=== PATIENT | female | born 1990 | race Caucasian/White ===

== ENCOUNTER 2016-05-22 19:30 | Emergency (ER) | payer MEDICAID ==
--- NOTE | 2016-05-22 19:57 | ER Document Report ---
ED Medical Screen (RME) - General Stated Complaint: RIGHT HAND PAIN Mode of Arrival: Ambulatory Information source: Patient Notes: Patient was pulling on a shirt that her was also pulling on. Patient states that her commissure and twisted. Patient complains of right hand pain involving right fourth and fifth fingers. Patient is right-hand dominant. hx: Thyroid cancer, liver failure, hypertension I have greeted and performed a rapid initial assessment of this patient. A comprehensive ED assessment and evaluation of the patient, analysis of test results and completion of the medical decision making process will be conducted by additional ED providers. TRAVEL OUTSIDE OF THE [place] IN LAST 30 DAYS: No - Related Data Allergies/Adverse Reactions: gabapentin Allergy (Verified 05/22/16 19:54) tramadol Allergy (Verified 05/22/16 19:54) Past Medical History GI Medical History: Reports: Hx Hepatitis - Hep C, Hx Liver Failure Psychiatric Medical History: Reports: Hx Depression - as a teenager Infectious Medical History: Reports: Hx Hepatitis - Hep C Past Surgical History: Reports: Hx Section - Immunizations Immunizations up to date: Yes Hx Diphtheria, Pertussis, Tetanus Vaccination: Yes Physical Exam - Extremities General upper extremity: Tender - Right hand tenderness
[2016-05-22] MEDS ORDERED: OXYCODONE HCL IR 5 MG TABLET PO ONE (22:39)
--- NOTE | 2016-05-22 22:48 | ER Document Report ---
ED Hand/Wrist Injury - General Chief Complaint: Wrist Injury Stated Complaint: RIGHT HAND PAIN Time seen by provider: 22:41 Mode of Arrival: Ambulatory Notes: 26-year-old female presents to ED for pain in her right fourth finger. She states her and her were both pulling on the same shirt and her finger got twisted. Her right fourth finger is swollen and very ecchymotic. TRAVEL OUTSIDE OF THE [place] IN LAST 30 DAYS: No - HPI Injury to: Ring finger Onset: Just prior to arrival Where: Home Timing: Still present Quality of pain: Sharp, Throbbing Severity: Moderate Pain Level: 4 Context: Other - Finger was twisted all her and her were both pulling on the same shirt - Related Data Allergies/Adverse Reactions: gabapentin Allergy (Verified 05/22/16 19:54) tramadol Allergy (Verified 05/22/16 19:54) Past Medical History - General Information source: Patient - Social History Smoking Status: Never Smoker Cigarette use (# per day): No Chew tobacco use (# tins/day): No Smoking Education Provided: No Frequency of alcohol use: None Drug Abuse: None Occupation: none Lives with: Family Family History: Arthritis, CAD, CVA, DM, Hyperlipidemia, Hypertension, Malignancy, Thyroid Disfunction. denies: COPD Patient has suicidal ideation: No Patient has homicidal ideation: No - Past Medical History Cardiac Medical History: Reports: None Pulmonary Medical History: Reports: None EENT Medical History: Reports: None Neurological Medical History: Reports: None Endocrine Medical History: Reports: None Renal/ Medical History: Reports: None Malignancy Medical History: Reports: Other - Thyroid cancer GI Medical History: Reports: Hx Hepatitis - Hep C, Hx Liver Failure Musculoskeltal Medical History: Reports Hx Musculoskeletal Trauma - Right fourth finger Skin Medical History: Reports None Psychiatric Medical History: Reports: None, Hx Depression - as a teenager Traumatic Medical History: Reports: Hx Fractures - Right fourth finger today Infectious Medical History: Reports: Hx Hepatitis - Hep C Past Surgical History: Reports: Hx Section - Immunizations Immunizations up to date: Yes Hx Diphtheria, Pertussis, Tetanus Vaccination: Yes Review of Systems - Review of Systems Constitutional: No symptoms reported EENT: No symptoms reported Cardiovascular: No symptoms reported Respiratory: No symptoms reported Gastrointestinal: No symptoms reported Genitourinary: No symptoms reported Female Genitourinary: No symptoms reported Musculoskeletal: Other - Right fourth finger pain swelling bruising Skin: Change in color Hematologic/Lymphatic: No symptoms reported Neurological/Psychological: No symptoms reported Physical Exam - Vital signs Vitals: Temp Pulse Resp BP Pulse Ox 97.8 F 107 H 16 136/91 H 100 05/22/16 19:54 05/22/16 19:54 05/22/16 19:54 05/22/16 19:54 05/22/16 19:54 Interpretation: Normal - General General appearance: Appears well, Alert - HEENT Head: Normocephalic, Atraumatic Eyes: Normal Pupils: PERRL - Respiratory Respiratory status: No respiratory distress Chest status: Nontender Breath sounds: Normal Chest palpation: Normal - Cardiovascular Rhythm: Regular Heart sounds: Normal auscultation Murmur: No - Abdominal Inspection: Normal Distension: No distension Bowel sounds: Normal Tenderness: Nontender Organomegaly: No organomegaly - Back Back: Normal, Nontender - Extremities General upper extremity: Normal temperature General lower extremity: Normal inspection, Nontender, Normal color, Normal ROM , Normal temperature, Normal weight bearing. No: Zulay's sign Hand: Tender - Right fourth finger, Ecchymosis - Right fourth finger, No evidence of human bite, No evidence of FB, Swelling - Right fourth finger. No: Normal, Nontender, Abrasion, Deformity, Dislocation, Instability, Nail injury, Laceration, Tendon deficit, Other - Neurological Neuro grossly intact: Yes Cognition: Normal Orientation: AAOx4 Sanjay Coma Scale Eye Opening: Spontaneous [place] Coma Scale Verbal: Oriented Sanjay Coma Scale Motor: Obeys Commands [place] Coma Scale Total: 15 Speech: Normal Motor strength normal: LUE, RUE, LLE, RLE Sensory: Normal - Psychological Associated symptoms: Normal affect, Normal mood - Skin Skin Temperature: Warm Skin Moisture: Dry Skin Color: Normal Course - Re-evaluation Re-evalutation: 05/23/16 06:56 Discussed x-ray with patient. Patient treated with a splint to her right fourth finger and then treated with oxycodone due to her history of hepatitis C and had liver failure. Patient given a prescription for oxycodone and told to follow-up with orthopedics. - Vital Signs Vital signs: Temp Pulse Resp BP Pulse Ox 97.9 F 90 16 122/73 100 05/22/16 23:00 05/22/16 23:00 02/18/17 23:00 05/22/16 23:00 05/22/16 23:00 - Diagnostic Test Radiology reviewed: Image reviewed, Reports reviewed Procedures - Immobilization Right Finger 4th digit Immobilizer type: Finger splint (Static) Performed by: TAMMY Post-Proc Neuro Vasc Exam: Normal Alignment checked and good: Yes Discharge - Discharge Clinical Impression: fractured right fourth middle phalanx Condition: Stable Disposition: HOME, SELF-CARE Additional Instructions: Fractured Finger There is a fracture in your finger. The bone is straight and in good position to heal. The doctor has assessed the seriousness of the fracture and has explained your treatment plan. Usually the finger will be splinted until fracture healing is complete. This is usually about three or four weeks. At that time, the injured finger may be taped to the next finger to provide a moving splint for longer protection. The first few days after the injury, the finger should be kept elevated and cold (with ice packs). This decreases the swelling and pain. You should contact the doctor or return at once if pain or swelling become severe, or if the finger becomes numb. Some degree of bruising is normal with a finger fracture. SPLINT PRECAUTIONS: A splint has been placed. This will protect the area while healing begins. Your problem does NOT normally require a cast. It MUST, however, be held still! Keep the splint on ALL THE TIME until instructed to remove it by the doctor. As you begin to use the area, be careful. You shouldn't do anything which causes discomfort -- you may disturb the injury even with the splint in place. After the initial period of rest and elevation, if splint does not prevent pain when you move, come back. You may require placement of a different splint , or a cast. If there is unexpected severe pain, or numbness, discoloration, or swelling beyond the splint, you should return at once. If you feel that the splint has broken or become loose, come back. ICE & ELEVATION: Apply ice packs frequently against the painful area. Many different schedules are recommended, such as "20 minutes on, 20 minutes off" or "one hour ice, two hours rest." If you need to work, you may need to go longer between ice treatments. You should plan to have the area ice packed AT LEAST one- fourth of the time. The ice should be applied over the wrap, tape, or splint, or over a layer of cloth -- not directly against the skin. Some ice bags have a built-in cloth and can be put directly on the skin. Your injured part should be elevated as much as possible over the next 48 hours. Try to keep the injury above the level of the heart. Avoid use of the injured area. Elevation and rest will decrease the swelling. USE OF [id number] IBUPROFEN: Ibuprofen (Advil, Nuprin, Medipren, Motrin IB) is a medication for fever and pain control. In addition, it has anti- inflammatory effects which may be beneficial, especially in the treatment of injuries. It's best to take ibuprofen with food. Persons with ulcer disease or allergy to aspirin should notify their physician of this before taking ibuprofen. Ibuprofen can be given every four to six hours, for a total of four doses daily. Age Pain or fever dose Antiinflammatory dose 6-8 yr 200 mg (1 tab) 200 mg (1 tab) 9-11 yr 200 mg (1 tab) 200-400 mg (1-2 tab) 11-14 yr 200-400 mg (1-2 tab) 400 mg (2 tab) 15-adult 400 mg (2 tab) 600 mg (3 tab) ORAL NARCOTIC MEDICATION: You have been given a prescription for pain control. This medication is a narcotic. It's best taken with food, as nausea can result if taken on an empty stomach. Don't operate machinery or drive within six hours of taking this medication. Do not combine this medicine with alcohol, or with any medication which can cause sedation (such as cold tablets or sleeping pills) unless you get permission from the physician. Narcotics tend to cause constipation. If possible, drink plenty of fluids and eat a diet high in fiber and fruits. Please be aware that prescription narcotics also have the potential for abuse. People become addicted to these medications because of the general sense of wellbeing that they induce. This feeling along with a significant reduction in tension, anxiety, and aggression provides a stimulating seductive quality to these drugs. Once your pain is under control, we encourage you to discard your unused narcotics. FOLLOW-UP CARE: If you have been referred to a physician for follow-up care, call the physician s office for an appointment as you were instructed or within the next two days. If you experience worsening or a significant change in your symptoms, notify the physician immediately or return to the Emergency Department at any time for re-evaluation. Prescriptions: Oxycodone HCl 5 mg PO TIDP PRN #10 tablet PRN Reason: Forms: Elevated Blood Pressure Referrals: SONAM GARCIA MD [Primary Care Provider] - Follow up as needed JAQUELINE HARTMANN MD [ACTIVE STAFF] - Follow up as needed
[2016-05-22 23:51] VITALS: BP 122/73
== END 2016-05-22 23:05 | disposition home or self-care (01) ==
LOC: ER 19:30
DX: S62.624A Displaced fracture of middle phalanx of right ring finger, initial encounter for closed fracture (principal); M79.641 Pain in right hand; X50.9XXA Other and unspecified overexertion or strenuous movements or postures, initial encounter
CPT/HCPCS: 99283; 73130; J3490

== ENCOUNTER 2016-11-19 22:24 | Emergency (ER) | payer MEDICAID ==
[2016-11-20] MEDS ORDERED: ACETAMINOPHEN 325 MG TABLET PO ONE (00:28)
--- NOTE | 2016-11-20 00:28 | ER Document Report ---
ED General - General Chief Complaint: Rib Pain Stated Complaint: RIB PAIN Time Seen by Provider: 11/20/16 00:19 Notes: Patient is a pleasant 26-year-old female who presents with complaint of left- sided rib pain. Pain is pinpoint over the left lower anterior rib. She says she first noticed it when she was moving stuff and doing excessive cleaning. Since then every time she moves or pushes over there and hurts. Also hurts to take a deep breath. She is 7 months . This is her fourth . No complications with this . No leg pain or leg swelling. No fevers. No cough or congestion. She says she has a history of liver disease. She is unsure what, liver disease she has. She says because that her doctor told her she cannot take Tylenol. She therefore took Motrin 600 mg at home and also took 1 of her family members pain pills but she does not know the name of. She has no other complaints at this time. TRAVEL OUTSIDE OF THE [place] IN LAST 30 DAYS: No - Related Data Allergies/Adverse Reactions: gabapentin Allergy (Verified 11/19/16 22:53) tramadol Allergy (Verified 11/19/16 22:53) Past Medical History - Social History Smoking Status: Unknown if Ever Smoked Frequency of alcohol use: None Drug Abuse: None Family History: Arthritis, CAD, CVA, DM, Hyperlipidemia, Hypertension, Malignancy, Thyroid Disfunction. denies: COPD Renal/ Medical History: Denies: Hx Peritoneal Dialysis GI Medical History: Reports: Hx Hepatitis - Hep C, Hx Liver Failure Musculoskeltal Medical History: Reports Hx Musculoskeletal Trauma - Right fourth finger Psychiatric Medical History: Reports: Hx Depression - as a teenager Traumatic Medical History: Reports: Hx Fractures - Right fourth finger today Infectious Medical History: Reports: Hx Hepatitis - Hep C Past Surgical History: Reports: Hx Section - Immunizations Immunizations up to date: Yes Hx Diphtheria, Pertussis, Tetanus Vaccination: Yes Review of Systems - Review of Systems Notes: My Normal Review Basic REVIEW OF SYSTEMS: CONSTITUTIONAL : Denies fever, chills, or sweats. Denies recent illness. EENT: Denies eye, ear, throat, or mouth pain or symptoms. Denies nasal or sinus congestion. CARDIOVASCULAR: Left lower rib pain. RESPIRATORY: Denies cough, cold, or chest congestion. Denies shortness of breath, difficulty breathing, or wheezing. GASTROINTESTINAL: Denies abdominal pain. Denies nausea, vomiting, or diarrhea. Denies constipation. Last BM: MUSCULOSKELETAL: Denies neck or back pain or joint pain or swelling. SKIN: Denies rash or skin lesions. NEUROLOGICAL: Denies altered mental status or loss of consciousness. Denies headache. Denies weakness or paralysis or loss of use of either side. Denies problems with gait or speech. Denies sensory or motor loss. ALL OTHER SYSTEMS REVIEWED AND NEGATIVE. Physical Exam - Vital signs Vitals: Temp Pulse Resp BP Pulse Ox 98.0 F 99 22 H 129/85 H 98 11/19/16 22:53 11/19/16 22:53 11/19/16 22:53 11/19/16 22:53 11/19/16 22:53 - Notes Notes: General Appearance: Well nourished, alert, cooperative, no acute distress, mild to moderate obvious discomfort. Vitals: reviewed, See vital signs table. Head: no swelling or tenderness to the head Eyes: PERRL, EOMI, Conjuctiva clear Lungs: No wheezing, No rales, No rhonci, No accessory muscle use, good air exchange bilaterally. Heart: Normal rate, Regular rythm, No murmur, no rub Chest wall: Patient has obvious pinpoint pain to palpation over left lower rib at the costochondral junction. Pain is also easily reproducible with making the patient tried to sit up. No redness swelling or rash over the area Abdomen: Normal BS, soft, No rigidity, No abdominal tenderness, No guarding, no rebound, no abdominal masses, no organomegaly. Bedside ultrasound shows good movement. I cannot obtain a heart rate because of some artifact interference over the the heart itself. We will obtain Dopplers. Extremities: strength 5/5 in all extremities, good pulses in all extremities, no swelling or tenderness in the extremities, no edema. Skin: warm, dry, appropriate color, no rash Neuro: speech clear, oriented x 3, normal affect, responds appropriately to questions. Course - Re-evaluation Re-evalutation: 11/20/16 06:55 Patient's rib x-ray is negative for any type of pneumothorax or lung infiltrate. Her pain is easily reproducible palpation. This started after moving heavy objects. I suspect she probably has a subluxed restrained rib. I do not suspect PE. She is not had any leg pain or leg swelling. Her pain is very easily reproducible palpation and movement. This is much more consistent with musculoskeletal chest pain. I do not feel that a CT Susana Romero would have benefits outweigh the risks at this time especially considering that her physical exam is not consistent with PE. Patient encouraged to take Tylenol for pain. She is encouraged to return to ER if she feels like her pain is worsening, she has difficulty breathing, fevers, or feels unwell. Patient agrees with plan will be discharged home. Dictation of this chart was performed using voice recognition software; therefore, there may be some unintended grammatical errors. - Vital Signs Vital signs: Temp Pulse Resp BP Pulse Ox 98.2 F 90 20 121/78 100 11/20/16 02:54 11/20/16 02:54 11/20/16 02:54 11/20/16 02:54 11/20/16 02:54 Discharge - Discharge Clinical Impression: Rib pain on left side Qualifiers: Weeks of gestation: unspecified Qualified Code(s): Z34.90 - Encounter for supervision of normal , unspecified, unspecified trimester Condition: Good Disposition: HOME, SELF-CARE Additional Instructions: I suspect that he most likely have a subluxed rib that is causing her pain. Treatment is Tylenol being that you are . It is okay for you to take 350 mg of Tylenol every 4 hours. Please follow-up closely with your doubler operator for reevaluation. I will have the nurse give you something called incentive spirometer. Please use it to take a deep breath every 30 minutes. Taking a full deep breath helps to prevent from having pneumonia or any small collapsing in the lung that would otherwise occur because of you not wanting to take a deep breath due to pain. Please return to the ER immediately if you have difficulty breathing, worsening pain, fevers, or feel unwell. Forms: Return to Work
--- NOTE | 2016-11-20 02:14 | RADIOLOGY REPORT (SQ) ---
EXAM DESCRIPTION: CHEST SINGLE VIEW COMPLETED DATE/TIME: 11/20/2016 1:36 am REASON FOR STUDY: chest pain COMPARISON: 12/08/2015. EXAM PARAMETERS: NUMBER OF VIEWS: One view. TECHNIQUE: Single frontal radiographic view of the chest acquired. RADIATION DOSE: NA LIMITATIONS: None. FINDINGS: LUNGS AND PLEURA: No opacities, masses or pneumothorax. No pleural effusion. MEDIASTINUM AND HILAR STRUCTURES: No masses. Contour normal. HEART AND VASCULAR STRUCTURES: Heart normal in size. Normal vasculature. BONES: No acute findings. HARDWARE: None in the chest. OTHER: No other significant finding. IMPRESSION: NO ACUTE RADIOGRAPHIC FINDING IN THE CHEST. TECHNICAL DOCUMENTATION: JOB ID: [id number]
[2016-11-20 02:58] VITALS: BP 121/78
== END 2016-11-20 02:58 | disposition home or self-care (01) ==
LOC: ER 22:24
DX: Z34.90 Encounter for supervision of normal pregnancy, unspecified, unspecified trimester (principal); R07.81 Pleurodynia; Z3A.28 28 weeks gestation of pregnancy
CPT/HCPCS: 99283; 71010; J3490

== ENCOUNTER 2017-01-15 09:24 | Inpatient (IN) | payer MEDICAID ==
[2017-01-15 10:31] LABS: APPEARANCE,URINE CLEAR; BILIRUBIN,URINE NEGATIVE (NEGATIVE); GLUCOSE, URINE NEGATIVE (NEGATIVE); KETONES,URINE TRACE mg/dL (NEGATIVE); LEUKOCYTE ESTERASE,URINE TRACE (NEGATIVE); NITRITE,URINE NEGATIVE (NEGATIVE); PROTEIN,URINE NEGATIVE (NEGATIVE); URINE SPECIFIC GRAVITY 1.023; UROBILINOGEN,URINE NEGATIVE mg/dL (<2.0)
[2017-01-15 10:40] LABS: URINE BARBITURATES SCREEN NEGATIVE; URINE METHADONE SCREEN NEGATIVE; URINE OPIATES LOW NEGATIVE
[2017-01-15 10:55] LABS: URINE PHENCYCLIDINE SCREEN NEGATIVE
[2017-01-15 11:16] LABS: ABSOLUTE LYMPHOCYTES (AUTO) 1.8 10^3/uL (0.5-4.7); ABSOLUTE MONOCYTES (AUTO) 0.5 10^3/uL (0.1-1.4); ABSOLUTE NEUT (AUTO) 6.5 10^3/uL (1.7-8.2); BASOPHILS % (AUTO) 0.4 % (0-2); EOSINOPHILS % (AUTO) 0.3 % (0-6); HEMATOCRIT 32.8 % (36.0-47.0); HEMOGLOBIN 11.4 g/dL (12.0-15.5); HGB HCT DIFFERENCE 1.4; LYMPHOCYTES % (AUTO) 19.7 % (13-45); MEAN CORPUSCULAR HEMOGLOBIN 28.6 pg (27.0-33.4); MEAN CORPUSCULAR HGB CONC 34.8 g/dL (32.0-36.0); MEAN CORPUSCULAR VOLUME 82 fl (80-97); RED CELL DISTRIBUTION WIDTH 13.9 % (11.5-14.0); SEGMENTED NEUTROPHILS % (AUTO) 73.6 % (42-78); WHITE BLOOD COUNT 8.9 10^3/uL (4.0-10.5)
[2017-01-15 11:38] LABS: ALANINE AMINOTRANSFERASE 64 U/L (9-52); ALKALINE PHOSPHATASE 229 U/L (38-126); ANION GAP 12 (5-19); ASPARTATE AMINO TRANSFERASE 44 U/L (14-36); BILIRUBIN,DIRECT 0.3 mg/dL (0.0-0.4); BILIRUBIN,TOTAL 0.6 mg/dL (0.2-1.3); BLOOD UREA NITROGEN 14 mg/dL (7-20); CALCIUM 8.9 mg/dL (8.4-10.2); CARBON DIOXIDE 18 mmol/L (22-30); CHLORIDE 109 mmol/L (98-107); GLUCOSE 76 mg/dL (75-110); LDH 288 U/L (313-618); POTASSIUM 4.2 mmol/L (3.6-5.0); SODIUM 138.6 mmol/L (137-145); TOTAL PROTEIN 6.4 g/dL (6.3-8.2); URIC ACID 4.9 mg/dL (2.5-6.2)
--- NOTE | 2017-01-15 11:41 | RADIOLOGY REPORT (SQ) ---
EXAM DESCRIPTION: U/S OB 14+ TA/1 GEST W/DOPPLER COMPLETED DATE/TIME: 01/15/2017 11:00 am REASON FOR STUDY: complete ob US COMPARISON: None. TECHNIQUE: Static and Dynamic grayscale imaging performed of gravid uterus using transabdominal appr oach. Additional selected color Doppler and spectral images recorded. All stored on PACS. LIMITATIONS: Limited visualization of brain structures, head in the maternal pelvis. FINDINGS: EGA: 38 weeks 1 day by multiple measurements. ISABEL: 01/28/2017 EFW: 3335 g grams PERCENTILE: Not calculated JESSE: 2.3 cm PLACENTA: Anterior GRADE: III PRESENTATION: Cephalic. ANATOMY: HEART RATE: 136 beats per minute. FOUR CHAMBER HEART: Visualized. THREE VESSEL CORD: Yes. CORD INSERTION: Not well seen KIDNEYS AND BLADDER: Visualized. Appear normal. STOMACH: Visualized. Appears normal. SPINE: Normal as visualized. BRAIN AND LATERAL VENTRICLES: Not well seen OTHER: No other significant finding. MATERNAL ADNEXA: Maternal ovaries not visualized. CERVICAL LENGTH: Not well seen OTHER: No other significant finding. IMPRESSION: Oligohydramnios, JESSE 2.3 cm ESTIMATED GESTATIONAL AGE Estimated age by multiple measurements is 38 weeks 1 day NO VISUALIZED ANOMALIES. Trimester of : Third trimester - 28 weeks to delivery. TECHNICAL DOCUMENTATION: JOB ID: [id number]- All Rights Reserved
[2017-01-15] MEDS ORDERED: CITRIC ACID/SODIUM CITRATE ORAL SOLN 15 ML UDCUP PO PRN (11:44)
[2017-01-15] MEDS ORDERED: CEFAZOLIN 1 GM/D5W RTU 1 GM/50 ML RTUPB IV PRN (11:44)
[2017-01-15 12:04] LABS: RUBELLA IGG ANTIBODY 7.58 IU/mL
[2017-01-15 12:16] LABS: ADD HIVPANEL? NO; HIV (1 AND 2) ANTIBODY NEGATIVE (NEGATIVE)
[2017-01-15] MEDS ORDERED: CEFAZOLIN 1 GM/D5W RTU 1 GM/50 ML RTUPB IV ONE (12:17)
[2017-01-15] MEDS ORDERED: CITRIC ACID/SODIUM CITRATE ORAL SOLN 15 ML UDCUP ONE (12:17)
[2017-01-15] MEDS: RINGERS SOLUTION,LACTATED 1,000 ML IV PRN ×2 (12:20→12:21)
[2017-01-15] MEDS ORDERED: CEFAZOLIN 2 GM/D5W RTU 2 GM/50 ML RTUPB IV ONE (12:46)
[2017-01-15] MEDS ORDERED: OXYTOCIN/NORMAL SALINE 20 UNIT/1,000 ML RTUINJ ONE (13:00)
[2017-01-15] MEDS ORDERED: ONDANSETRON HCL INJ/PF 4 MG/2 ML SDV ONE (13:01)
[2017-01-15] MEDS ORDERED: OXYTOCIN 10 UNIT/ML VIAL ONE (13:01)
[2017-01-15] MEDS ORDERED: EPHEDRINE SULFATE INJ 50 MG/1 ML AMPULE ONE (13:01)
[2017-01-15] MEDS ORDERED: MIDAZOLAM 2 MG/2 ML INJ ONE (13:01)
[2017-01-15] MEDS ORDERED: FENTANYL CITRATE INJ/PF 100 MCG/2 ML AMPUL ONE (13:01)
[2017-01-15] MEDS ORDERED: PROMETHAZINE HCL INJ 25 MG/1 ML VIAL IV PRN (14:39)
[2017-01-15] MEDS ORDERED: FENTANYL CITRATE INJ/PF 100 MCG/2 ML AMPUL IV PRN ×2 (14:39)
[2017-01-15] MEDS ORDERED: DIPHENHYDRAMINE HCL 50 MG/ML VIAL IV PRN (14:39)
[2017-01-15] MEDS ORDERED: MEPERIDINE HCL/PF INJ 25 MG/1 ML DISP.SYRIN IV PRN (14:39)
[2017-01-15] MEDS ORDERED: AZITHROMYCIN 250 MG TABLET PO ONE (14:41)
[2017-01-15] MEDS ORDERED: BUPIVACAINE HCL 0.25 % INJ/PF (2.5 MG/1 ML) 30 ML VIAL ONE (14:56)
[2017-01-15] MEDS ORDERED: PROMETHAZINE HCL INJ 25 MG/1 ML VIAL ONE (15:00)
[2017-01-15] MEDS ORDERED: ACETAMINOPHEN 325 MG TABLET PO PRN (15:25)
[2017-01-15] MEDS ORDERED: OXYTOCIN/NORMAL SALINE 20 UNIT/1,000 ML RTUINJ IV PRN (15:25)
[2017-01-15] MEDS ORDERED: MEASLES,MUMPS&RUBELLA VACC/PF 0.5 ML VIAL SUBCUT PRN (15:25)
[2017-01-15] MEDS ORDERED: SIMETHICONE 80 MG TAB.CHEW PO PRN (15:25)
[2017-01-15] MEDS ORDERED: ACETAMINOPHEN 100 ML IV PRN (15:25)
[2017-01-15] MEDS ORDERED: OXYCODONE-ACETAMINOPHEN 5-325 MG TABLET PO PRN (15:25)
[2017-01-15] MEDS ORDERED: DIPH/PERTUSS(ACELL)/TETANUS VAC/PF 0.5 ML SYR (>=10YO) IM PRN (15:25)
[2017-01-15] MEDS ORDERED: MORPHINE SULFATE 10 MG/ML INJ IM PRN (15:25)
[2017-01-15] MEDS ORDERED: KETOROLAC TROMETHAMINE INJ/PF 30 MG/1 ML SDV IV ONE (15:45)
[2017-01-15] MEDS: FENTANYL CITRATE INJ/PF 100 MCG/2 ML AMPUL IV PRN ×2 (16:08→16:28)
[2017-01-15] MEDS ORDERED: AZITHROMYCIN 250 MG TABLET ONE (16:46)
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
[2017-01-15] MEDS ORDERED: CEFAZOLIN 2 GM/D5W RTU 2 GM/50 ML RTUPB IV SCH (18:00)
[2017-01-15] MEDS: HYDROMORPHONE HCL INJ/PF 2 MG/ML AMPULE IV PRN (18:06)
[2017-01-15] MEDS: DOCUSATE SODIUM 100 MG CAPSULE PO SCH (18:07)
--- NOTE | 2017-01-15 18:27 | Brief Operative Note ---
BRIEF OPERATIVE REPORT DATE OF SURGERY: 01/15/17 TIME OF SURGERY: 13:10 PREOPERATIVE DIAGNOSIS: IUP @ approximately 38wks gestation. Prior x 2. SROM-Meconium. Opiod abuse. No care. Declines TOLAC POSTOPERATIVE DIAGNOSIS: Same. delivered via SURGEON: CIRA REYES 1ST AUTO FLEET MANAGER: JERMAINE MCKEON FINDINGS: Viable male infant in vtx presentation with APGARS of 9&9 and wt 3085g. Normal intact placenta with 3VC. Minimal amniotic fluid, meconium stained amniotic fluid. COMPLICATIONS: None known ESTIMATED BLOOD LOSS: 500ml TISSUE REMOVED OR ALTERED: Placenta for disposal TECHNICAL PROCEDURE: Repeat low transverse section Subjective-OB Subjective: Post Delivery Day: 26 year old. Denies any needs at this time Dict#[id number]
[2017-01-15] MEDS ORDERED: ONDANSETRON HCL INJ/PF 4 MG/2 ML SDV IV PRN (18:28)
[2017-01-15] MEDS: OXYCODONE-ACETAMINOPHEN 5-325 MG TABLET PO PRN (20:40)
[2017-01-15] MEDS: KETOROLAC TROMETHAMINE INJ/PF 30 MG/1 ML SDV IV SCH (23:10)
[2017-01-16] MEDS: OXYCODONE-ACETAMINOPHEN 5-325 MG TABLET PO PRN ×5 (01:10→22:33)
[2017-01-16] MEDS: KETOROLAC TROMETHAMINE INJ/PF 30 MG/1 ML SDV IV SCH (06:06)
[2017-01-16 06:54] LABS: HEMATOCRIT 29.9 % (36.0-47.0); HEMOGLOBIN 10.4 g/dL (12.0-15.5); HGB HCT DIFFERENCE 1.3; MEAN CORPUSCULAR HEMOGLOBIN 28.8 pg (27.0-33.4); MEAN CORPUSCULAR VOLUME 83 fl (80-97); RED BLOOD COUNT 3.62 10^6/uL (3.72-5.28); RED CELL DISTRIBUTION WIDTH 14.1 % (11.5-14.0); WHITE BLOOD COUNT 10.7 10^3/uL (4.0-10.5)
[2017-01-16] MEDS: HYDROMORPHONE HCL INJ/PF 2 MG/ML AMPULE IV PRN ×2 (09:36→16:41)
[2017-01-16] MEDS: DOCUSATE SODIUM 100 MG CAPSULE PO SCH ×2 (09:36→18:05)
[2017-01-16] MEDS ORDERED: PRENATAL VITAMIN W-O CA NO5/FE FUMARATE/FA CAPSULE PO SCH (10:00)
--- NOTE | 2017-01-16 10:33 | PDOC PROGRESS REPORT ---
Subjective-OB Subjective: Post Delivery Day: 26 year old. Denies any needs at this time Doing ok, hard to manage pain, does better with Dilaudid, at home was taking 4 Morphine 20mg tabs a day, percocet does not help her, + gas, ambulating, eating ok Physical Exam (OB) Vital Signs: Temp Pulse Resp BP Pulse Ox 98.0 F 72 14 135/86 H 100 01/16/17 08:07 01/16/17 08:07 01/16/17 08:07 01/16/17 08:07 01/16/17 08:07 Intake & Output 01/15/17 01/16/17 01/17/17 06:59 06:59 06:59 Intake Total 615 300 Output Total 1400 Balance -785 300 Weight 81.05 kg - PIH/Pre-Eclampsia DTR's: 1 + Clonus: Negative Headache: Absent Epigastric Pain: No Visual Changes: No - Dressing Removed: No Incision: Dressing Closure Type: OP Site - Lochia Lochia Amount: Small 10-25 ml Lochia Color: Rubra/Red - Abdomen Description: Soft, Round Hernia Present: No Fundal Description: Firm, Midline Fundal Height: u/u - u/2 Objective-Diagnostic Laboratory: 01/16/17 06:41 01/15/17 10:44 01/15/17 01/15/17 01/15/17 10:44 10:44 10:44 WBC 8.9 RBC 4.00 Hgb 11.4 L Hct 32.8 L MCV 82 MCH 28.6 MCHC 34.8 RDW 13.9 Plt Count 306 Seg Neutrophils % 73.6 Lymphocytes % 19.7 Monocytes % 6.0 Eosinophils % 0.3 Basophils % 0.4 Absolute Neutrophils 6.5 Absolute Lymphocytes 1.8 Absolute Monocytes 0.5 Absolute Eosinophils 0.0 Absolute Basophils 0.0 Sodium 138.6 Potassium 4.2 Chloride 109 H Carbon Dioxide 18 L Anion Gap 12 BUN 14 Creatinine 0.50 L Est GFR ( Amer) > 60 Est GFR (Non-Af Amer) > 60 Glucose 76 Uric Acid 4.9 Calcium 8.9 Total Bilirubin 0.6 AST 44 H ALT 64 H Alkaline Phosphatase 229 H Total Protein 6.4 Albumin 3.0 L TSH Blood Type A POSITIVE Antibody Screen NEGATIVE 01/15/17 01/16/17 10:44 06:41 WBC 10.7 H RBC 3.62 L Hgb 10.4 L Hct 29.9 L MCV 83 MCH 28.8 MCHC 35.0 RDW 14.1 H Plt Count 256 Seg Neutrophils % Lymphocytes % Monocytes % Eosinophils % Basophils % Absolute Neutrophils Absolute Lymphocytes Absolute Monocytes Absolute Eosinophils Absolute Basophils Sodium Potassium Chloride Carbon Dioxide Anion Gap BUN Creatinine Est GFR ( Amer) Est GFR (Non-Af Amer) Glucose Uric Acid Calcium Total Bilirubin AST ALT Alkaline Phosphatase Total Protein Albumin TSH 2.00 Blood Type Antibody Screen Assessment and Plan(PN) - Assessment and Plan (1) S/P repeat low transverse Is this a current diagnosis for this admission?: Yes (2) Oligohydramnios in barrera in third trimester Is this a current diagnosis for this admission?: Yes (3) Drug abuse during Is this a current diagnosis for this admission?: Yes (4) No care in current Qualifiers: Trimester: first trimester Qualified Code(s): O09.31 - Supervision of with insufficient care, first trimester Is this a current diagnosis for this admission?: Yes - Time Spent with Patient Time with patient: Less than 15 minutes Smoking Education Provided: Over 3 minutes Medications reviewed and adjusted accordingly: Yes - Disposition Anticipated Discharge: Home Within: within 48 hours
[2017-01-16] MEDS: PRENATAL VITAMIN W-O CA NO5/FE FUMARATE/FA CAPSULE PO SCH (10:53)
[2017-01-16] MEDS: IBUPROFEN 800 MG TABLET PO SCH ×2 (12:16→18:04)
[2017-01-17] MEDS: IBUPROFEN 800 MG TABLET PO SCH ×3 (00:11→11:38)
[2017-01-17] MEDS: OXYCODONE-ACETAMINOPHEN 5-325 MG TABLET PO PRN ×3 (02:32→11:39)
--- NOTE | 2017-01-17 08:46 | PDOC PROGRESS REPORT ---
Subjective-OB Subjective: Post Delivery Day: 26 year old. Denies any needs at this time Doing better today, IV medication works good for her, has already started at [facility] for detox and suboxone therapy after she is discharged, walking, voiding, eating well, + gas, ready to go home Physical Exam (OB) Vital Signs: Temp Pulse Resp BP Pulse Ox 98.3 F 91 16 130/89 H 100 01/17/17 00:11 01/17/17 00:11 01/17/17 00:11 01/17/17 00:11 01/17/17 00:11 Intake & Output 01/16/17 01/17/17 01/18/17 06:59 06:59 06:59 Intake Total 615 800 Output Total 1400 Balance -785 800 Weight 81.05 kg - PIH/Pre-Eclampsia DTR's: 2 + Clonus: Negative Headache: Absent Epigastric Pain: No Visual Changes: No - Dressing Removed: No - Opsite D&I Incision: Dressing Closure Type: OP Site - Lochia Lochia Amount: Scant < 10 ml Lochia Color: Rubra/Red - Abdomen Description: Tender, Soft, Round Hernia Present: No Fundal Description: Firm, Midline Fundal Height: u/u - u/2 Objective-Diagnostic Laboratory: 01/16/17 06:41 01/15/17 10:44 Assessment and Plan(PN) - Assessment and Plan (1) S/P repeat low transverse Is this a current diagnosis for this admission?: Yes (2) Oligohydramnios in barrera in third trimester Is this a current diagnosis for this admission?: Yes (3) Drug abuse during Is this a current diagnosis for this admission?: Yes (4) No care in current Qualifiers: Trimester: first trimester Qualified Code(s): O09.31 - Supervision of with insufficient care, first trimester Is this a current diagnosis for this admission?: Yes - Time Spent with Patient Time with patient: Less than 15 minutes Smoking Education Provided: Over 3 minutes Medications reviewed and adjusted accordingly: Yes - Disposition Anticipated Discharge: Home Within: Other - home today
--- NOTE | 2017-01-17 08:50 | PDOC DISCHARGE SUMMARY ---
Final Diagnosis Discharge Date: 01/17/17 - Final Diagnosis (1) S/P repeat low transverse Is this a current diagnosis for this admission?: Yes (2) Oligohydramnios in barrera in third trimester Is this a current diagnosis for this admission?: Yes (3) Drug abuse during Is this a current diagnosis for this admission?: Yes (4) No care in current Is this a current diagnosis for this admission?: Yes Discharge Data - Discharge Medication Home Medications: Pnv95/Iron Fum/Folic Acid [ Caplet] 1 tab PO DAILY 04/29/15 Ibuprofen [Motrin 800 mg Tablet] 800 mg PO Q6 #60 tablet 01/17/17 Oxycodone HCl/Acetaminophen [Percocet 5-325 mg Tablet] 1 tab PO Q4HP PRN #30 tablet 01/17/17 Reason(s) for Admission: Ceasarean Section-Repeat Procedures: None Intrapartum Procedure(s): : Low Cervical, Transverse Intrapartum Procedure Note: No care - Diagnosis Test Laboratory: Temp Pulse Resp BP Pulse Ox 98.3 F 91 16 130/89 H 100 01/17/17 00:11 01/17/17 00:11 01/17/17 00:11 01/17/17 00:11 01/17/17 00:11 01/15/17 01/15/17 01/16/17 09:36 10:44 06:41 RBC 4.00 3.62 L Hgb 11.4 L 10.4 L Hct 32.8 L 29.9 L Urine Opiates Screen NEGATIVE - Discharge information/Instructions Discharge Activity: Activity As Tolerated, No Lifting Over 10 Pounds, No Lifting /Push/Pulling, Pelvic Rest Discharge Diet: As Tolerated, Regular Disposition: HOME, SELF-CARE Follow up with: [facility] in: , - Tuesday LAMAR
[2017-01-17] MEDS: DOCUSATE SODIUM 100 MG CAPSULE PO SCH (10:03)
[2017-01-17] MEDS: PRENATAL VITAMIN W-O CA NO5/FE FUMARATE/FA CAPSULE PO SCH (10:03)
[2017-01-17] MEDS ORDERED: INFLUENZA ADLT QUAD (36MOS+) 2017-18 VAC 0.5 ML SYR IM PRN (12:51)
[2017-01-17 13:13] VITALS: BP 140/90
[2017-01-17 15:21] LABS: HEPATITIS C VIRUS AB >11.0 s/co ratio (0.0-0.9)
--- NOTE | 2017-01-18 13:05 | Delivery Summary ---
Del Sum A-C Datetime Report Generated by CPN: 01/18/2017 13:04 DELIVERY PERSONNEL DELIVERY PERSONNEL: [id number] Delivery Doctor:: Nakita Álvarez MD Anesthesiologist:: Radha Paul MD BUS REPAIR SUPERVISOR:: Harvey Montgomery CRNA Labor and Delivery Nurse:: Miriam Le RN Neonatal Nurse Practitioner:: BRANDON Worley Nursery Nurse:: Jaycee Barreto RN Student Observers:: JOSE LUIS Enriquez Physical Education Specialist/COLLEGE SCOUTING COORDINATOR: Farideh Piper CST Physical Education Specialist/COLLEGE SCOUTING COORDINATOR: Earle Mcnair TAX CLERK MATERNAL INFORMATION Delivery Anesthesia: Spinal Medications After Delivery: Pitocin Bolus-Please Comment Maternal Complications: Premature Rupture of Membranes; Other Other Maternal Complications: No care LABOR SUMMARY EDC: 01/28/2017 00:00 No. Babies in Womb: 1 Attempted: No Labor Anesthesia: None LABOR INFORMATION Reason for Induction: Not Applicable Oxytocin: N/A Group B Beta Strep: 1 NO GROUP B STREPTOCOCCUS RECOVERED Group B Beta Strep: Unknown Antibiotics # of Doses: 0 Steroids Given: None Reason Steroids Not Administered: Not Applicable MEMBRANES Membranes Rupture Method: Spontaneous Rupture of Membranes: 01/15/2017 08:00 Length of Rupture (hr): 5.83 Amniotic Fluid Color: Moderate Meconium Amniotic Fluid Amount: Moderate Amniotic Fluid Odor: Normal STAGES OF LABOR Stage 3 hr: 0 Stage 3 min: 1 VAGINAL DELIVERY Episiotomy: None Laceration #1: None Laceration Extension #1: N/A Sponge Count Correct: N/A CSECTION DELIVERY Primary Indication: Repeat Elective CSection Urgency: Non-Scheduled CSection Incidence: Repeat Labor: No Labor Elective: Nonelective CSection Incision: Lower Uterine Transverse BABY A INFORMATION Delivery Date/Time: 01/15/2017 13:50 Method of Delivery: Born in Route : No : N/A Forceps: N/A Vacuum Extraction: N/A Shoulder Dystocia : No PRESENTATION/POSITION BABY A Presentation: Cephalic Cephalic Presentation: Vertex Vertex Position: Right Occipital Anterior Breech Presentation: N/A PLACENTA INFORMATION BABY A Placenta Delivery Time : 01/15/2017 13:51 Placenta Method of Delivery: Manual Removal Placenta Status: Delivered SCORES BABY A Heart Rate 1 min: >100 bpm Resp Effort 1 min: Good Cry Reflex Irritability 1 min: Cough or Sneeze or Pulls Away Muscle Tone 1 min: Active Motion Color 1 min: Body [place], Extremities Blue Resuscitation Effort 1 min: Tactile Stimulation SCORE 1 MIN: 9 Heart Rate 5 min: >100 bpm Resp Effort 5 min: Good Cry Reflex Irritability 5 min: Cough or Sneeze or Pulls Away Muscle Tone 5 min: Active Motion Color 5 min: Body [place], Extremities Blue Resuscitation Effort 5 min: Tactile Stimulation SCORE 5 MIN: 9 INFORMATION BABY A Gestational Age at Delivery: 38.1 Gestational Status: Early Term- 37- 38.6 Weeks Infant Outcome : Liveborn Infant Condition : Stable Sex: Male IDENTIFICATION BABY A Verification Date/Time: 01/15/2017 13:56 ID Band Number: [id number] Mother's Name Verified: Yes RN Verifying Infant: AStephanie Le RN Additional Verifying Personnel: AStephanie Barreto WEIGHT/LENGTH BABY A Birthweight (gm): 3085 Infant Weight (lb): 6 Infant Weight (oz): 13 Infant Length (in): 19.50 Infant Length (cm): 49.53 CORD INFORMATION BABY A No. Cord Vessels: 3 Nuchal Cord : N/A Cord Blood Taken: Yes-For Storage (Mom's Blood type +) Infant Suction: Mouth; Nose ASSESSMENT BABY A Complications: Meconium Physical Findings at Delivery: Within Normal Limits Respirations: Appears Normal Skin to Skin: No Furniture Builder/ALS Called : Yes Infant Care By: LeslyStephanie Estevan RN Transferred To: [facility] BABY B INFORMATION : N/A
--- NOTE | 2017-03-04 13:44 | OPERATIVE REPORT E ---
Operative Report NAME: CORA LOREDO : 1990 AGE: 26Y DATE OF SURGERY: 01/15/2017 ROOM: 227 PREDELIVERY HISTORY: This is a 26-year-old, G5, P3 who presented to Labor and Delivery via EMS for spontaneous rupture of membranes. Patient was noted to have no care. On admission, patient was found to be grossly ruptured with meconium-stained amniotic fluid. Patient initially gave a last menstrual period of first week of June which put her around 32 weeks' gestation. On exam, fundal height was more consistent with 36 weeks' gestation. Patient underwent third trimester ultrasound with findings of consistent 5 g diameter and femur length and head circumference that is more consistent with 38 weeks' gestation. Patient was admitted opioid abuser and initially tested positive for benzodiazepines. Patient is known to abuse Percocet and morphine. Patient has a history of heroin use but no IV drug use with . Patient has a history also of 2 prior C-sections. For this delivery, patient declined a trial of labor after sections, noting that patient did have a history of a vaginal delivery with her first baby, noting baby was 8 pounds. After doing a full history and physical, patient also noted to have good movement and no vaginal bleeding. Patient denied any problems with this though; she had no issues in regard to the outside of no care. After a full workup, it was discussed with patient the risks of repeat being bleeding, infection, poor wound healing, possible damage to bowel, bladder, ureters, nerves, blood vessels, or any other adjacent structures in the pelvis. Also note there is increased risk of thromboembolic disease in addition to increased risk of hysterectomy and inherent risk of anesthesia. Knowing all of the above, patient did consent to a repeat low-transverse section. Patient also stated that she desires permanent sterilization, but since patient is not known to me and there was no appropriate and no appropriate counseling time to be done, it was discussed with patient that a tubal ligation or permanent sterilization at the time of a would not be completed. Patient was consented. All appropriate preoperative labs were drawn. PREOPERATIVE DIAGNOSES: 1. INTRAUTERINE AT 38 WEEKS' GESTATION. 2. PRIOR X2. 3. SPONTANEOUS RUPTURE OF MEMBRANES WITH MECONIUM. 4. OPIOID ABUSE. 5. NO CARE. 6. DECLINES TRIAL OF LABOR AFTER SECTION. POSTOPERATIVE DIAGNOSES: 1. INTRAUTERINE AT 38 WEEKS' GESTATION. 2. PRIOR X2. 3. SPONTANEOUS RUPTURE OF MEMBRANES WITH MECONIUM. 4. OPIOID ABUSE. 5. NO CARE. 6. DECLINES TRIAL OF LABOR AFTER SECTION WITH BEING DELIVERED VIA . PROCEDURE PERFORMED: Repeat low-transverse section. SURGEON: CIRA REYES M.D. RECTIFYING OPERATOR: Maximilian , third-year medical student ESTIMATED BLOOD LOSS: Approximately 500 mL. ANESTHESIA: Spinal. INTRAVENOUS FLUIDS: 1200 mL. URINE OUTPUT: 300 mL of clear urine at the end of the procedure. FINDINGS: Viable male in vertex presentation with Apgars of 9 and 9 at one and five minutes respectively and weight of 3085 g. Normal intact placenta and 3-vessel cord. Minimal amniotic fluid that was meconium stained. Patient did have a normal uterus, ovaries, and tubes bilaterally. COMPLICATIONS: None known. Placenta was removed and was disposed of. Mom and tolerated the procedure well. PROCEDURE: The patient was taken to the operating room where patient had Venodynes in place. Prior to placement of spinal anesthesia, the patient's Venodynes were on and active prior to the placement of the spinal anesthesia. After placement of spinal anesthesia, patient was quickly laid down and Wright catheter was placed. Patient was then prepped and draped in a normal sterile fashion. Patient had a left lateral tilt prior to sterile prep. Prior to incision, a time-out was performed to ensure that it was appropriate patient and the appropriate position and appropriate procedure. Patient was tested prior to initial incision. After testing and time-out, a Pfannenstiel incision was made in patient's previous area of Pfannenstiel incision except previous Pfannenstiel incision was not opened completely. A fresh scalpel blade was used to incise the skin in a transverse fashion. The Bovie was used to dissect down to the underlying layer of fascia. The rectus muscles were exposed with the fascia incised in the midline. Mary Alice clamps were used to tent up the rectus sheath superiorly, and the rectus muscles were dissected off bluntly and sharply with the Bovie. Attention then was turned to the inferior portion of the rectus sheath that was dissected off the rectus muscles bluntly then sharply with the Bovie. Attention then was turned to the patient's midline, where secondary to the attenuation of the patient's muscle and prior 3 C-sections, there was some scar tissue that was easily entered, and a window was made in the peritoneum. The rectus muscles were dissected off even more superiorly, and the inferior portion of the incision was carefully dissected sharply. The peritoneal entrance was enlarged with blunt stretching laterally. The Abdulkadir self-retaining retractor was placed in the patient's abdomen and set. The vesicouterine peritoneum was identified to be stuck to the lower uterine segment. The re-peritonealized bladder flap was dissected off the lower uterine segment sharply with the Metzenbaum scissors. A fresh scalpel blade was used to incise the lower uterine segment in a transverse fashion. The lower uterine segment was very thin, and there was minimal fluid. After making the hysterotomy incision, the incision was probed bluntly with the back of the knife handle. The hysterotomy was opened in the anterior-posterior directions with excessive extension out to the lateral uterine vessels. The vertex was elevated from the pelvis and the uterus, and the vertex was brought through the hysterotomy incision atraumatically, followed by the body. was bulb suctioned at delivery. Cord was doubly clamped and cut, and infant was taken over to the warmer where the baby nurse was waiting. Cord blood was collected and sent for analysis. IV Pitocin was given as a excessive maternal blood loss after delivery of . The placenta was removed manually, and the uterus was cleared of all clots and debris. The ring forceps were used to dilate the cervix internally, and the ring forceps were thrown off the field. The first layer of the uterus was closed with 0 Vicryl suture in a running, locked fashion. A second layer of the same suture was used for the imbricating layer. There were 2 nonhemostatic areas at the hysterotomy incision that were sewn over with [id number] style with 0 Vicryl suture in 2 places. Afterwards, the were brought to hemostasis with the Bovie. The Abdulkadir self-retaining retractor was taken out of the patient's abdomen. The peritoneum and rectus muscles were reapproximated in the midline in a running mattress suture where the attenuated rectus muscles were brought back together. The fascia was closed with 0 Vicryl suture in a running fashion. Any stray bleeders in the adipose tissue were irrigated and then brought to hemostasis with the Bovie. The adipose tissue was reapproximated with 3-0 Vicryl suture in interrupted fashion. The skin was closed with 4-0 Monocryl suture on a Dayday needle. The skin was cleansed, benzoin was placed, and Steri-Strips were cut in half and placed over patient's incision. The incision was infiltrated with a local anesthetic. A Suresite postop dressing was placed along with a pressure dressing being placed. Patient was expressed, then cleansed. Patient was eventually moved to a bed and taken to recovery in awake and stable condition. Patient tolerated the procedure well. Sponge, lap, needle, instrument counts were correct. DICTATING PHYSICIAN: CIRA REYES M.D. [id number] PHY#: [id number] ID: [id number] JOB#: [id number] ACCT: [id number] cc:CIRA REYES M.D. >
== END 2017-01-17 13:45 | disposition home or self-care (01) | DRG 765 ==
LOC: LC 09:24 → LR 09:59 → 2S 17:36
PROVIDERS: ADMIT Obstetrics & Gynecology; ATTEND Obstetrics & Gynecology
PROC: 10D00Z1 Extraction of Products of Conception, Low, Open Approach (ICD-10-PCS; principal; 2017-01-15)
PROC: 4A1HXCZ Monitoring of Products of Conception, Cardiac Rate, External Approach (ICD-10-PCS; 2017-01-15)
PROC: 3E0234Z Introduction of Serum, Toxoid and Vaccine into Muscle, Percutaneous Approach (ICD-10-PCS; 2017-01-17)
PROC: 3E0234Z Introduction of Serum, Toxoid and Vaccine into Muscle, Percutaneous Approach (ICD-10-PCS; 2017-01-17)
DX: O34.211 Maternal care for low transverse scar from previous cesarean delivery (principal); O41.03X0 Oligohydramnios, third trimester, not applicable or unspecified; O99.324 Drug use complicating childbirth; F11.20 Opioid dependence, uncomplicated; O10.02 Pre-existing essential hypertension complicating childbirth; O77.0 Labor and delivery complicated by meconium in amniotic fluid; Z23 Encounter for immunization; Z88.6 Allergy status to analgesic agent; Z85.850 Personal history of malignant neoplasm of thyroid; Z3A.38 38 weeks gestation of pregnancy; Z37.0 Single live birth
CPT/HCPCS: 1961; 36415; 76805; 80053; 80307; 81001; 82962; 83519; 83615; 84443; 84550; 85025; 85027; 86592; 86701; 86762; 86803; 86804; 86850; 86900; 86901; 87081; 87340; 87491; 87591; 88307; 90686; 90707; 90715; 93976; 94799; G0480; J0690; J1170; J1885; J2250; J2405; J2550; J2590; J3010; J3490

== ENCOUNTER 2017-10-17 10:11 | Emergency (ER) | payer MEDICAID ==
[2017-10-17 10:18] VITALS: BP 128/83
[2017-10-17] MEDS ORDERED: LIDOCAINE 1% INJ-PF (10 MG/ML) 30 ML SDV INJ ONE (11:08)
--- NOTE | 2017-10-17 11:11 | ER Document Report ---
HPI - HPI Pain Level: 4 Notes: Patient is a 27-year-old female who presents to the ED complaining of swelling, redness, and possible abscess to the left distal lateral forearm 3 days. Patient states that she does have associated pain to palpation in that area. She has not noticed any red streaks or purulent discharge. She does not have any allergies to antibiotics. Denies any active IV drug using. Patient states that she does have old scars, but promises that there has not been any recent usage. + h/o MRSA in 2010. Denies any headache, fever, URI, sore throat, chest pain, palpitations, syncope, cough, shortness of breath, wheeze, dyspnea, abdominal pain, nausea/vomiting/diarrhea, urinary retention, dysuria, hematuria. - ROS Systems Reviewed and Negative: Yes All other systems reviewed and negative - CONSTITUTIONAL Constitutional: DENIES: Fever, Chills - REPRODUCTIVE LMP: Reproductive: REPORTS: : - MUSCULOSKELETAL Musculoskeletal: REPORTS: Extremity pain - left wrist Past Medical History - Social History Smoking Status: Never Smoker Chew tobacco use (# tins/day): No Frequency of alcohol use: None Drug Abuse: None Family History: Arthritis, CAD, CVA, DM, Hyperlipidemia, Hypertension, Malignancy, Thyroid Disfunction. denies: COPD Patient has suicidal ideation: No Patient has homicidal ideation: No - Past Medical History Cardiac Medical History: Reports: Hx Hypertension Renal/ Medical History: Denies: Hx Peritoneal Dialysis GI Medical History: Reports: Hx Hepatitis - Hep C, Hx Liver Failure Musculoskeletal Medical History: Reports Hx Musculoskeletal Trauma - Right fourth finger Psychiatric Medical History: Reports: Hx Depression - as a teenager Traumatic Medical History: Reports: Hx Fractures - Right fourth finger today Infectious Medical History: Reports: Hx Hepatitis - Hep C Past Surgical History: Reports: Hx Section - Immunizations Immunizations up to date: Yes Hx Diphtheria, Pertussis, Tetanus Vaccination: Yes Vertical Provider Document - CONSTITUTIONAL Agree With Documented VS: Yes Notes: PHYSICAL EXAMINATION: GENERAL: Well-appearing, well-nourished and in no acute distress. LUNGS: Breath sounds clear to auscultation bilaterally and equal. No wheezes rales or rhonchi. HEART: Regular rate and rhythm without murmurs, rubs, gallops. Musculoskeletal: Left UE/wrist: FROM to passive/active. Strength 5+/5. No bony tenderness. N/V intact distal. Extremities: No cyanosis, clubbing, or edema b/l. Peripheral pulses 2+. Capillary refill less than 3 seconds. NEUROLOGICAL: Normal speech, normal gait. Normal sensory, motor exams PSYCH: Normal mood, normal affect. SKIN: + erythema, swelling, minimal fluctuance noted to the 2.5cm diameter abscess area to the left distolateral forearm. No streaks or discharge. + tenderness and induration. - INFECTION CONTROL TRAVEL OUTSIDE OF THE [place] IN LAST 30 DAYS: No Course - Re-evaluation Re-evalutation: 10/17/17 11:30 Patient is an afebrile, well-hydrated, 27-year-old female who presents to the ED with an abscess to the left distal lateral forearm. Vitals are acceptable without any significant tachycardia, tachypnea, or hypoxia. PE is otherwise unremarkable. Patient is nontoxic-appearing and is tolerating p.o. without any difficulties. Incision and drainage is performed successfully without complications and packing was placed. Wound culture was obtained. No other labs or imaging warranted at this time based on H&P. Low suspicion for any sepsis, meningitis, severe dehydration, respiratory compromise, fracture, or other systemic emergent condition at this time. Patient is aware that condition can change from initial presentation and she needs to monitor symptoms closely and seek medical attention with any acute changes. Reviewed antibiotics with Dr. Ibanez who recommends no antibiotic as there is no surrounding cellulitis and I&D performed appropriately. Pt to monitor closely and if any cellulitis to return immediately. Conservative measures otherwise for symptoms. Recheck with your PCM in 2-3 days. Return to the ED with any worsening/concerning symptoms otherwise as reviewed in discharge. Patient is in agreement. - Vital Signs Vital signs: Temp Pulse Resp BP Pulse Ox 98.6 F 99 16 128/83 H 99 10/17/17 10:16 10/17/17 10:16 10/17/17 10:16 10/17/17 10:16 10/17/17 10:16 Procedures - Incision and Drainage Left Wrist Time completed: 11:30 - Patient tolerated procedure well without any complications, wound culture was obtained Type: Simple Anesthetic type: 1% Lidocaine mL's of anesthetic: 5 Blade size: 11 I&D procedure: Shurclens applied, Iodoform packing placed, Sterile dressing applied, Other - Chlorhexidine/saline Incision Method: Incision made by scalpel Amount/type of drainage: Scant purulent Discharge - Discharge Clinical Impression: Abscess Condition: Stable Disposition: HOME, SELF-CARE Instructions: Abscess ([facility]), Post Incision and Drainage Additional Instructions: Do not shower or bathe for 24 hours. After 24 hours she may shower but no submersion of the wound under water. Keep the original dressing on the wound for 24 hours unless the drainage soaks through. Change the dressing daily thereafter and use a small amount of triple antibiotic ointment over the open wound. See your PCM in 2-3 days for recheck and continue direction for wound packing. Monitor for any signs of worsening pain or redness, streaks, and/or fever. Return to the ED if noticing any of the above symptoms or as needed. Forms: Elevated Blood Pressure Referrals: [facility] [Provider Group] - Follow up as needed [facility] [Provider Group] - Follow up as needed
== END 2017-10-17 12:01 | disposition home or self-care (01) ==
LOC: ER 10:11
DX: O99.719 Diseases of the skin and subcutaneous tissue complicating pregnancy, unspecified trimester (principal); L02.414 Cutaneous abscess of left upper limb; O16.9 Unspecified maternal hypertension, unspecified trimester; Z3A.00 Weeks of gestation of pregnancy not specified; Z86.14 Personal history of Methicillin resistant Staphylococcus aureus infection
CPT/HCPCS: 99283; 87070; 87205; 87077; 87186; 10060; A6266

== ENCOUNTER 2017-12-18 19:42 | Inpatient (IN) | payer MEDICAID ==
[~2017-12-18 19:42] MED LIST: PHENYLEPHRINE HCL INJ/PF 10 MG/1 ML SDV ONE
[2017-12-18 20:45] LABS: ABSOLUTE EOSINOPHILS # (AUTO) 0.8 10^3/uL (0.0-0.6); ABSOLUTE LYMPHOCYTES (AUTO) 2.5 10^3/uL (0.5-4.7); ABSOLUTE MONOCYTES (AUTO) 0.8 10^3/uL (0.1-1.4); ABSOLUTE NEUT (AUTO) 5.9 10^3/uL (1.7-8.2); BASOPHILS % (AUTO) 0.2 % (0-2); EOSINOPHILS % (AUTO) 7.6 % (0-6); HEMATOCRIT 29.9 % (36.0-47.0); HEMOGLOBIN 10.5 g/dL (12.0-15.5); MEAN CORPUSCULAR HEMOGLOBIN 27.4 pg (27.0-33.4); MEAN CORPUSCULAR VOLUME 78 fl (80-97); MONOCYTES % (AUTO) 8.4 % (3-13); PLATELET COUNT 330 10^3/uL (150-450); RED BLOOD COUNT 3.82 10^6/uL (3.72-5.28); RED CELL DISTRIBUTION WIDTH 14.7 % (11.5-14.0); SEGMENTED NEUTROPHILS % (AUTO) 58.8 % (42-78); TOTAL CELLS COUNTED % (AUTO) 100 %
[2017-12-18] MEDS ORDERED: CITRIC ACID/SODIUM CITRATE ORAL SOLN 15 ML UDCUP ONE (21:32)
[2017-12-18] MEDS ORDERED: CEFAZOLIN 2 GM/D5W RTU 2 GM/50 ML RTUPB IV ONE (21:32)
[2017-12-18 21:48] LABS: RUBELLA INTERPRETATION POSITIVE
[2017-12-18] MEDS ORDERED: PROPOFOL INJ 200 MG/20 ML VIAL IV ONE (21:54)
[2017-12-18] MEDS ORDERED: EPHEDRINE SULFATE INJ 50 MG/1 ML AMPULE ONE (21:54)
[2017-12-18] MEDS ORDERED: OXYTOCIN 10 UNIT/ML VIAL ONE (21:54)
[2017-12-18] MEDS ORDERED: FENTANYL CITRATE INJ/PF 100 MCG/2 ML AMPUL ONE ×2 (21:54→23:33)
[2017-12-18] MEDS ORDERED: BUPIVACAINE HCL/DEX-WATER/PF 15 MG/2 ML AMPULE ONE (21:55)
[2017-12-18] MEDS ORDERED: MIDAZOLAM 2 MG/2 ML INJ ONE (21:55)
[2017-12-18] MEDS ORDERED: CITRIC ACID/SODIUM CITRATE ORAL SOLN 15 ML UDCUP PO PRN (22:00)
[2017-12-18] MEDS ORDERED: FENTANYL CITRATE INJ/PF 100 MCG/2 ML AMPUL IV PRN ×2 (22:41)
[2017-12-18] MEDS ORDERED: ONDANSETRON HCL INJ/PF 4 MG/2 ML SDV IV PRN (22:41)
[2017-12-18 23:18] LABS: ARTERIAL BLOOD BASE EXCESS 0 mmol/L; ARTERIAL BLOOD H2CO3 1.44 mmol/L (1.05-1.35); ARTERIAL BLOOD HCO3 26.1 mmol/L (20-24); ARTERIAL BLOOD PH 7.35 (7.35-7.45); ARTERIAL BLOOD TOTAL CO2 27.6 mmol/L (21-25)
[2017-12-18 23:20] LABS: ARTERIAL BLOOD FIO2 CORD BLOOD; ARTERIAL BLOOD PO2 10.5 mmHg (80-100)
[2017-12-18] MEDS ORDERED: OXYCODONE-ACETAMINOPHEN 5-325 MG TABLET PO PRN (23:24)
[2017-12-18] MEDS ORDERED: SIMETHICONE 80 MG TAB.CHEW PO PRN (23:24)
[2017-12-18] MEDS ORDERED: OXYTOCIN/NORMAL SALINE 20 UNIT/1,000 ML RTUINJ IV PRN (23:24)
[2017-12-18] MEDS ORDERED: GLUCAGON,HUMAN RECOMB 1 MG INJ SUBCUT PRN (23:24)
[2017-12-18] MEDS ORDERED: PROMETHAZINE HCL INJ 25 MG/1 ML VIAL IV PRN (23:24)
[2017-12-18] MEDS ORDERED: ACETAMINOPHEN 325 MG TABLET PO PRN (23:24)
[2017-12-18] MEDS ORDERED: MEASLES,MUMPS&RUBELLA VACC/PF 0.5 ML VIAL SUBCUT PRN (23:24)
[2017-12-18] MEDS ORDERED: DIPH/PERTUSS(ACELL)/TETANUS VAC/PF 0.5 ML SYR (>=10YO) IM PRN (23:24)
[2017-12-18] MEDS ORDERED: DEXTROSE 50%-WATER 25 GM/50 ML DISP.SYRIN IV PRN ×2 (23:24)
[2017-12-18] MEDS ORDERED: DEXTROSE 40% GEL 15 GM TUBE PO PRN ×2 (23:24)
[2017-12-18] MEDS ORDERED: PROMETHAZINE HCL INJ 25 MG/1 ML VIAL ONE (23:32)
[2017-12-18] MEDS ORDERED: MEPERIDINE HCL/PF INJ 25 MG/1 ML DISP.SYRIN ONE (23:33)
[2017-12-18] MEDS ORDERED: MORPHINE SULFATE 10 MG/ML INJ ONE (23:33)
[2017-12-18] MEDS: FENTANYL CITRATE INJ/PF 100 MCG/2 ML AMPUL IV PRN (23:38)
[2017-12-18] MEDS: PROMETHAZINE HCL INJ 25 MG/1 ML VIAL IV PRN (23:40)
--- NOTE | 2017-12-18 23:44 | Brief Operative Note ---
BRIEF OPERATIVE REPORT DATE OF SURGERY: 12/18/17 TIME OF SURGERY: 23:31 PREOPERATIVE DIAGNOSIS: 1. at 36-6/7 weeks per ultrasound. 2. Previous 3. 3. Active labor. 4. Drug dependence. 5. No care POSTOPERATIVE DIAGNOSIS: Same SURGEON: SADA GRUBBS FINDINGS: Male in the cephalic position COMPLICATIONS: None ESTIMATED BLOOD LOSS: 300 mL TISSUE REMOVED OR ALTERED: Placenta TECHNICAL PROCEDURE: The patient was taken to the operating room where spinal anesthesia was administered without difficulty. The patient was then prepared and draped in normal sterile fashion in dorsal lithotomy position. Prior to the draping procedure, a Wright catheter was placed in the patient's bladder. Next, a Pfannenstiel skin incision was made with scalpel, using her previous incision as a guide. The incision was carried through to the underlying layer of fascia. The fascia was then incised in the midline and the excision was extended laterally with the Coto scissors. The superior aspect of the fascial incision was then grasped with Mary Alice clamps, elevated, and underlying rectus muscles dissected off both bluntly and sharply. Attention was then turned to the inferior aspect of this incision which, in a similar fashion, was grasped, tented up with Mary Alice clamps and the rectus muscles dissected off both bluntly and sharply. The rectus muscles were in the midline, and the peritoneum identified, tented up, and entered sharply with the Metzenbaum scissors. The peritoneal incision was then extended superiorly and inferiorly with good visualization of the bladder. The bladder blade was then inserted and the vesicouterine peritoneum was identified, grasped with pickups and entered sharply with the Metzenbaum scissors. This incision was then extended laterally and inferiorly and the bladder flap was created digitally. The bladder blade was then reinserted and the lower uterine segment was incised in a transverse fashion with scalpel. The uterine incision was then extended laterally with the bandage scissors, as well as digitally. The bladder blade was then removed and infant's head delivered atraumatically, with the assistance of a vacuum. Meconium was noted when the anatomy was performed. The nose and mouth were then suctioned with the bulb suction and the cord was clamped and cut. The was handed off to the awaiting assistant cook. Cord blood and cord gases were obtained. The placenta was then removed manually, the uterus exteriorized and cleared of all clots and debris. The uterine incision was then repaired with 0 Vicryl in a running, locked fashion. A second layer, using 0 chromic was used to imbricate the incision for excellent hemostasis. There was some bleeding noted in the right aspect of the incision which a xilwlw-oh-ucloa was strategically placed to gain hemostasis. The abdomen was then copiously irrigated with warm normal saline. The bladder flap was then repaired with 3-0 Vicryl in a running fashion. The uterus was then placed back into the abdomen. The gutters were then cleared of all debris. A piece of Interceed was placed over the uterine incision as well as a piece vertically on the anterior surface of the uterus. Peritoneum was then closed with 2-0 Vicryl and a running fashion. Fascia was then repaired with 0 Vicryl in a running fashion. The skin was then repaired with 4-0 Monocryl subcuticular fashion. The patient tolerated the procedure well. Sponge, lap, instrument and needle counts were correct 2. The patient was given 2 g of Ancef prior to the start of the procedure. The patient was taken to the recovery room in stable condition.
[2017-12-18] MEDS: MEPERIDINE HCL/PF INJ 25 MG/1 ML DISP.SYRIN IV PRN (23:48)
[2017-12-19 00:15] LABS: APPEARANCE,URINE SLIGHTLY-CLOUDY; BILIRUBIN,URINE MODERATE (NEGATIVE); COLOR,URINE AMBER; GLUCOSE, URINE NEGATIVE (NEGATIVE); KETONES,URINE NEGATIVE (NEGATIVE); URINE SPECIFIC GRAVITY 1.025
[2017-12-19 00:16] LABS: LEUKOCYTE ESTERASE,URINE NEGATIVE (NEGATIVE); NITRITE,URINE NEGATIVE (NEGATIVE); PROTEIN,URINE 30 mg/dL (NEGATIVE)
[2017-12-19 00:30] LABS: URINE AMPHETAMINES SCREEN NEGATIVE; URINE BARBITURATES SCREEN NEGATIVE; URINE BENZODIAZEPINES SCREEN NEGATIVE; URINE COCAINE SCREEN NEGATIVE; URINE METHADONE SCREEN NEGATIVE; URINE PHENCYCLIDINE SCREEN NEGATIVE
[2017-12-19 00:46] LABS: URINE MARIJUANA (THC) SCREEN UNCONFIRMED POSITIVE
[2017-12-19] MEDS: FENTANYL CITRATE INJ/PF 100 MCG/2 ML AMPUL IV PRN (00:48)
[2017-12-19] MEDS: MEPERIDINE HCL/PF INJ 25 MG/1 ML DISP.SYRIN IV PRN (00:48)
[2017-12-19] MEDS: PROMETHAZINE HCL INJ 25 MG/1 ML VIAL IV PRN (00:49)
[2017-12-19] MEDS: MORPHINE SULFATE 10 MG/ML INJ IV PRN ×4 (00:58→01:45)
[2017-12-19] MEDS ORDERED: ENOXAPARIN SODIUM INJ 40 MG/0.4 ML DISP.SYRIN SUBCUT SCH (01:00)
[2017-12-19] MEDS ORDERED: HYDROMORPHONE HCL INJ/PF 2 MG/ML AMPULE ONE (01:24)
[2017-12-19] MEDS ORDERED: OXYTOCIN/NORMAL SALINE 20 UNIT/1,000 ML RTUINJ ONE (01:24)
[2017-12-19] MEDS: HYDROMORPHONE HCL INJ/PF 2 MG/ML AMPULE IV PRN ×5 (01:30→20:52)
[2017-12-19] MEDS ORDERED: DIPHENHYDRAMINE HCL 50 MG/ML VIAL ONE (01:32)
[2017-12-19] MEDS: DIPHENHYDRAMINE HCL 50 MG/ML VIAL IV PRN ×2 (01:33→01:46)
[2017-12-19] MEDS ORDERED: MORPHINE SULFATE 10 MG/ML INJ ONE (01:42)
[2017-12-19] MEDS: OXYCODONE-ACETAMINOPHEN 5-325 MG TABLET PO PRN ×5 (03:05→22:33)
[2017-12-19 06:34] LABS: HEMATOCRIT 31.6 % (36.0-47.0); HEMOGLOBIN 10.9 g/dL (12.0-15.5); MEAN CORPUSCULAR HGB CONC 34.4 g/dL (32.0-36.0); MEAN CORPUSCULAR VOLUME 79 fl (80-97); PLATELET COUNT 257 10^3/uL (150-450); RED BLOOD COUNT 4.02 10^6/uL (3.72-5.28); RED CELL DISTRIBUTION WIDTH 14.6 % (11.5-14.0); WHITE BLOOD COUNT 11.4 10^3/uL (4.0-10.5)
--- NOTE | 2017-12-19 07:46 | RADIOLOGY REPORT (SQ) ---
EXAM DESCRIPTION: US LIMITED COMPLETED DATE/TME: 12/18/2017 20:29 CLINICAL HISTORY: 27 years, Female, EGA, CL, JESSE, placenta COMPARISON: None. TECHNIQUE: Transabdominal grayscale color and M-mode imaging through the maternal pelvis were performed. LIMITATIONS: A limited study was performed as the patient needed to be taken to surgery for . FINDINGS: A single intrauterine gestation is identified reportedly in cephalic positioning. heart motion is detected at 141 bpm. biometry was obtained with results as below. The placenta is anterior. Amniotic fluid index totals 9.6 cm. The lower uterine segment is not well seen to evaluate for previa. Biparietal diameter, 9.3 cm, 37 weeks and six days Head circumference, 33.2 cm, 37 weeks and six days Abdominal circumference, 33.9 cm, 37 weeks and six days Femoral length, 7.4 cm, 37 weeks and five days Estimated weight 3311 g +/- 490 g (7 lbs. 5 oz. +/- 17 ounces) IMPRESSION: Single live intrauterine gestation with a gestational age of 37 weeks and six days based on composite biometry. Amniotic fluid index is 9.6 cm. Anterior placenta with limited visualization of the lower uterine segment. Cervical length was not evaluated as the patient was taken to surgery for . 2011 [employer]- All Rights Reserved
--- NOTE | 2017-12-19 07:46 | Warning Signs in Babies ---
VOD Warning Signs Datetime Report Generated by [facility]: 12/19/2017 03:52 VOD#608 -Warning Signs in Babies: Needs to be viewed. (12/18/2017 19:51:Juana Purvis RN)
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
--- NOTE | 2017-12-19 07:46 | Delivery Summary ---
Del Sum A-C Datetime Report Generated by CPN: 12/19/2017 03:10 DELIVERY PERSONNEL DELIVERY PERSONNEL: [id number] Delivery Doctor:: Trang Adler MD Anesthesiologist:: Ned Gamboa MD MERCURY PURIFIER:: [place] CRNA Labor and Delivery Nurse:: Jo Curran RNmultimedia services manager Nurse:: Lorena Whitaker RN Filter Tank Tender Helper Head:: Jo Curran RN Neonatal Nurse Practitioner:: BRANDON Cole Nursery Nurse:: Corry Novoa RN Planning Technician/TREASURY ASSOCIATE: ST Akil Planning Technician/TREASURY ASSOCIATE: Kati Alford, ST MATERNAL INFORMATION Delivery Anesthesia: Spinal Medications After Delivery: Pitocin Drip 20 Units/1000ml NSS Maternal Complications: Other Complication Details: NO CARE, HEP C POSITIVE Provider Comments: Active labor--marcie q 2 minutes; cervical dilatation 3/50%/-3 and vertex; h/o C/S x 3 LABOR SUMMARY EDC: 01/02/2018 00:00 No. Babies in Womb: 1 Attempted: No Labor Anesthesia: None LABOR INFORMATION Reason for Induction: Not Applicable Onset of Labor: 12/18/2017 17:00 Oxytocin: N/A Group B Beta Strep: UNKNOWN Steroids Given: None Reason Steroids Not Administered: Not Applicable MEMBRANES Membranes Rupture Method: Artificial Rupture of Membranes: 12/18/2017 22:24 Length of Rupture (hr): 0.05 Amniotic Fluid Color: Light Meconium Amniotic Fluid Amount: Small Amniotic Fluid Odor: Normal STAGES OF LABOR Stage 3 hr: 0 Stage 3 min: 1 Total Time in Labor hr: 5 Total Time in Labor min: 28 VAGINAL DELIVERY Episiotomy: None Laceration #1: None Laceration Extension #1: N/A CSECTION DELIVERY Primary Indication: active labor Secondary Indication: > 2 Previous CSections CSection Urgency: Non-Scheduled CSection Incidence: Repeat Labor: Labor Elective: Nonelective CSection Incision: Lower Uterine Transverse Uterine Closure: Double-layer closure BABY A INFORMATION Delivery Date/Time: 12/18/2017 22:27 Method of Delivery: Born in Route : No : N/A Forceps: N/A Vacuum Extraction: Successful Shoulder Dystocia : No ASSISTED DELIVERY BABY A Indication for Assisted Delivery: NEED FOR ASSISTANCE DURING CSECTION Catheter Prior to Procedure: Yes Vacuum Number of Pulls: 2 Vacuum Number of PopOffs: 1 Vacuum/Forceps Comment: KIWI APPLIED DURING SECTION PRESENTATION/POSITION BABY A Presentation: Cephalic Cephalic Presentation: Vertex Vertex Position: Right Occipital Anterior Breech Presentation: N/A PLACENTA INFORMATION BABY A Placenta Delivery Time : 12/18/2017 22:28 Placenta Method of Delivery: Manual Removal Placenta Status: Delivered SCORES BABY A Heart Rate 1 min: >100 bpm Resp Effort 1 min: Good Cry Reflex Irritability 1 min: Cough or Sneeze or Pulls Away Muscle Tone 1 min: Active Motion Color 1 min: Body [place], Extremities Blue Resuscitation Effort 1 min: Tactile Stimulation SCORE 1 MIN: 9 Heart Rate 5 min: >100 bpm Resp Effort 5 min: Good Cry Reflex Irritability 5 min: Cough or Sneeze or Pulls Away Muscle Tone 5 min: Active Motion Color 5 min: Body [place], Extremities Blue Resuscitation Effort 5 min: Tactile Stimulation SCORE 5 MIN: 9 INFORMATION BABY A Gestational Age at Delivery: 37.6 Gestational Status: Early Term- 37- 38.6 Weeks Infant Outcome : Liveborn Condition : Stable Sex: Male WEIGHT/LENGTH BABY A Birthweight (gm): 3120 Weight (lb): 6 Infant Weight (oz): 14 Infant Length (in): 19.50 Length (cm): 49.53 CORD INFORMATION BABY A No. Cord Vessels: 3 Nuchal Cord : N/A Cord Blood Taken: Yes-For Storage (Mom's Blood type +) Infant Suction: Mouth; Nose ASSESSMENT BABY A Infant Complications: Meconium Physical Findings at Delivery: Bruising Respirations: Appears Normal Clay Machine Operator/ALS Called : No Infant Care By: TAMMY NOVOA Transferred To: [facility] BABY B INFORMATION : N/A SIGNATURES Signature: with User ID: [email or web address]
--- NOTE | 2017-12-19 08:52 | PDOC PROGRESS REPORT ---
Subjective Progress Note for:: 12/19/17 Subjective:: Pt states that she feels good; decreasing lochia. Pt denies CP, SOB, F/C and N/ V. Wright just out. Pt has not ambulated yet Reason For Visit: Physical Exam - Physical Exam Vital Signs: Temp Pulse Resp BP Pulse Ox 97.5 F 64 18 123/81 98 12/19/17 06:12 12/19/17 06:12 12/19/17 06:12 12/19/17 06:12 12/19/17 06:12 Intake & Output 12/18/17 12/19/17 12/20/17 06:59 06:59 06:59 Intake Total 100 Output Total 650 Balance -550 Weight 73.3 kg General appearance: PRESENT: no acute distress Respiratory exam: PRESENT: clear to auscultation olivia Cardiovascular exam: PRESENT: RRR GI/Abdominal exam: PRESENT: normal bowel sounds - Incision: C/D/I; no erythema, soft Extremities exam: ABSENT: calf tenderness, clubbing - PAS in place, full ROM, joint swelling, pedal edema, tenderness, +1 edema, +2 edema, other Result Laboratory Results: 12/19/17 06:10 12/18/17 12/18/17 12/18/17 20:33 20:33 22:15 WBC 10.0 RBC 3.82 Hgb 10.5 L Hct 29.9 L MCV 78 L MCH 27.4 MCHC 35.0 RDW 14.7 H Plt Count 330 Seg Neutrophils % 58.8 Lymphocytes % 25.0 Monocytes % 8.4 Eosinophils % 7.6 H Basophils % 0.2 Absolute Neutrophils 5.9 Absolute Lymphocytes 2.5 Absolute Monocytes 0.8 Absolute Eosinophils 0.8 H Absolute Basophils 0.0 Carbonic Acid HCO3/H2CO3 Ratio ABG pH ABG pCO2 ABG pO2 ABG HCO3 ABG O2 Saturation ABG Base Excess FiO2 Urine Color Cancelled Urine Appearance Cancelled Urine pH Cancelled Ur Specific [place] Cancelled Urine Protein Cancelled Urine Glucose (UA) Cancelled Urine Ketones Cancelled Urine Blood Cancelled Urine Nitrite Cancelled Ur Leukocyte Esterase Cancelled Urine WBC (Auto) Urine RBC (Auto) Blood Type A POSITIVE Antibody Screen NEGATIVE 12/18/17 12/18/17 12/19/17 22:15 22:28 06:10 WBC 11.4 H RBC 4.02 Hgb 10.9 L Hct 31.6 L MCV 79 L MCH 27.0 MCHC 34.4 RDW 14.6 H Plt Count 257 Seg Neutrophils % Lymphocytes % Monocytes % Eosinophils % Basophils % Absolute Neutrophils Absolute Lymphocytes Absolute Monocytes Absolute Eosinophils Absolute Basophils Carbonic Acid 1.44 H HCO3/H2CO3 Ratio 18:1 ABG pH 7.35 ABG pCO2 48.0 H ABG pO2 10.5 L* ABG HCO3 26.1 H ABG O2 Saturation ABG Base Excess 0 FiO2 CORD BLOOD Urine Color ZACH Urine Appearance SLIGHTLY-CLOUDY Urine pH 8.0 Ur Specific [place] 1.025 Urine Protein 30 H Urine Glucose (UA) NEGATIVE Urine Ketones NEGATIVE Urine Blood NEGATIVE Urine Nitrite NEGATIVE Ur Leukocyte Esterase NEGATIVE Urine WBC (Auto) 3 Urine RBC (Auto) 6 Blood Type Antibody Screen Impressions: Obstetrics Ultrasound 12/18/17 20:29 IMPRESSION: Single live intrauterine gestation with a gestational age of 37 weeks and six days based on composite biometry. Amniotic fluid index is 9.6 cm. Anterior placenta with limited visualization of the lower uterine segment. Cervical length was not evaluated as the patient was taken to surgery for . 2010 [employer]- All Rights Reserved Assessment & Plan - Diagnosis (1) S/P repeat low transverse Is this a current diagnosis for this admission?: Yes (2) Drug abuse during Is this a current diagnosis for this admission?: Yes (3) No care in current Qualifiers: Is this a current diagnosis for this admission?: Yes (4) Hepatitis C, chronic, maternal, antepartum Is this a current diagnosis for this admission?: Yes (5) Active labor at term Is this a current diagnosis for this admission?: Yes - Plan Summary Plan Summary: Plan: 1. POD#1-s/p Repeat C/S--doing well surgically 2. Mild anemia--stable 3. Cont Postop care
[2017-12-19] MEDS: DOCUSATE SODIUM 100 MG CAPSULE PO SCH ×2 (10:00→18:49)
[2017-12-19] MEDS: ENOXAPARIN SODIUM INJ 40 MG/0.4 ML DISP.SYRIN SUBCUT SCH (10:00)
[2017-12-19] MEDS: PRENATAL VITAMIN W DHA CAPSULE PO SCH (10:00)
[2017-12-19] MEDS: FERROUS SULFATE 325 MG TABLET PO SCH ×2 (10:00→18:49)
[2017-12-19] MEDS: CEFAZOLIN 2 GM/D5W RTU 2 GM/50 ML RTUPB IV SCH (18:58)
[2017-12-19] MEDS ORDERED: DIPH/PERTUSS(ACELL)/TETANUS VAC/PF 0.5 ML SYR (>=10YO) IM PRN (19:30)
[2017-12-19] MEDS ORDERED: MEASLES,MUMPS&RUBELLA VACC/PF 0.5 ML VIAL SUBCUT PRN (19:30)
[2017-12-19] MEDS ORDERED: PROMETHAZINE HCL INJ 25 MG/1 ML VIAL IV PRN (19:30)
[2017-12-19] MEDS: IBUPROFEN 800 MG TABLET PO SCH (22:32)
[2017-12-20] MEDS: HYDROMORPHONE HCL INJ/PF 2 MG/ML AMPULE IV PRN ×4 (01:09→17:44)
[2017-12-20] MEDS: IBUPROFEN 800 MG TABLET PO SCH ×4 (04:07→21:00)
[2017-12-20] MEDS: OXYCODONE-ACETAMINOPHEN 5-325 MG TABLET PO PRN ×4 (06:47→20:59)
--- NOTE | 2017-12-20 09:06 | PDOC PROGRESS REPORT ---
Subjective-OB Progress Note for:: 12/20/17 Subjective: Doing better, last suboxone 4 days ago, pain under control, ambulating, eating well, passing gas Physical Exam (OB) Vital Signs: Temp Pulse Resp BP Pulse Ox 97.6 F 70 16 126/76 H 98 12/20/17 03:43 12/20/17 03:43 12/20/17 03:43 12/20/17 03:43 12/20/17 03:43 Intake & Output 12/19/17 12/20/17 12/21/17 06:59 06:59 06:59 Intake Total 100 1600 Output Total 650 700 Balance -550 900 Weight 73.3 kg - PIH/Pre-Eclampsia DTR's: 2 + Clonus: Negative Headache: Absent Epigastric Pain: No Visual Changes: No - Dressing Removed: No - Opsite CD&I Incision: Dressing Closure Type: opsite - Lochia Lochia Amount: Scant < 10 ml Lochia Color: Rubra/Red - Abdomen Description: Tender, Soft, Round Hernia Present: No Fundal Description: Firm, Midline Fundal Height: u/u - u/2 Objective-Diagnostic Laboratory: 12/19/17 06:10 Assessment and Plan(PN) - Assessment and Plan (1) Hepatitis C, chronic, maternal, antepartum Is this a current diagnosis for this admission?: Yes (2) Active labor at term Is this a current diagnosis for this admission?: Yes (3) S/P repeat low transverse Is this a current diagnosis for this admission?: Yes (5) Drug abuse during Is this a current diagnosis for this admission?: Yes (6) No care in current Qualifiers: Qualified Code(s): O09.33 - Supervision of with insufficient care, third trimester Is this a current diagnosis for this admission?: Yes - Time Spent with Patient Time with patient: Less than 15 minutes Medications reviewed and adjusted accordingly: Yes - Disposition Anticipated Discharge: Home Within: within 24 hours
[2017-12-20] MEDS: ENOXAPARIN SODIUM INJ 40 MG/0.4 ML DISP.SYRIN SUBCUT SCH (10:41)
[2017-12-20] MEDS: PRENATAL VITAMIN W DHA CAPSULE PO SCH (10:42)
[2017-12-20] MEDS: DOCUSATE SODIUM 100 MG CAPSULE PO SCH ×2 (10:42→17:45)
[2017-12-20] MEDS: FERROUS SULFATE 325 MG TABLET PO SCH ×2 (10:42→17:45)
[2017-12-20] MEDS ORDERED: IBUPROFEN 800 MG TABLET PO SCH (22:00)
[2017-12-21] MEDS: OXYCODONE-ACETAMINOPHEN 5-325 MG TABLET PO PRN ×4 (01:07→13:03)
[2017-12-21] MEDS: IBUPROFEN 800 MG TABLET PO SCH ×3 (03:58→15:01)
[2017-12-21 07:10] LABS: HEMATOCRIT 30.7 % (36.0-47.0); HEMOGLOBIN 10.4 g/dL (12.0-15.5); MEAN CORPUSCULAR HEMOGLOBIN 26.9 pg (27.0-33.4); MEAN CORPUSCULAR VOLUME 79 fl (80-97); PLATELET COUNT 307 10^3/uL (150-450); RED BLOOD COUNT 3.88 10^6/uL (3.72-5.28); RED CELL DISTRIBUTION WIDTH 15.1 % (11.5-14.0); WHITE BLOOD COUNT 10.5 10^3/uL (4.0-10.5)
[2017-12-21] MEDS: FERROUS SULFATE 325 MG TABLET PO SCH (09:21)
[2017-12-21] MEDS: PRENATAL VITAMIN W DHA CAPSULE PO SCH (09:21)
[2017-12-21] MEDS: ENOXAPARIN SODIUM INJ 40 MG/0.4 ML DISP.SYRIN SUBCUT SCH (09:23)
[2017-12-21] MEDS: DOCUSATE SODIUM 100 MG CAPSULE PO SCH (09:35)
--- NOTE | 2017-12-21 12:59 | PDOC DISCHARGE SUMMARY ---
Final Diagnosis Discharge Date: 12/21/17 - Final Diagnosis (1) Hepatitis C, chronic, maternal, antepartum Is this a current diagnosis for this admission?: Yes (2) Active labor at term Is this a current diagnosis for this admission?: Yes (3) S/P repeat low transverse Is this a current diagnosis for this admission?: Yes (4) Oligohydramnios in barrera in third trimester Is this a current diagnosis for this admission?: Yes (5) Drug abuse during Is this a current diagnosis for this admission?: Yes (6) No care in current Is this a current diagnosis for this admission?: Yes Discharge Data - Discharge Medication Prescriptions: Oxycodone HCl/Acetaminophen [Percocet 5-325 mg Tablet] 1 tab PO Q4HP PRN #20 tablet PRN Reason: For Pain Scale 3-5 Ibuprofen [Motrin 800 mg Tablet] 800 mg PO Q8HP PRN #60 tablet PRN Reason: Abdominal Cramping Docusate Sodium [Colace 100 mg Capsule] 100 mg PO BID #60 capsule Enoxaparin Sodium [Lovenox Inj 40 mg/0.4 ml Disp.syrin] 40 mg SUBCUT DAILY 42 Days #42 disp.syrin Ferrous Sulfate [Feosol 325 mg Tablet] 325 mg PO BIDPCBS #60 tablet Home Medications: Docusate Sodium [Colace 100 mg Capsule] 100 mg PO BID #60 capsule 12/21/17 Enoxaparin Sodium [Lovenox Inj 40 mg/0.4 ml Disp.syrin] 40 mg SUBCUT DAILY 42 Days #42 disp.syrin 12/21/17 Ferrous Sulfate [Feosol 325 mg Tablet] 325 mg PO BIDPCBS #60 tablet 12/21/17 Ibuprofen [Motrin 800 mg Tablet] 800 mg PO Q8HP PRN #60 tablet 12/21/17 Oxycodone HCl/Acetaminophen [Percocet 5-325 mg Tablet] 1 tab PO Q4HP PRN #20 tablet 12/21/17 Reason(s) for Admission: Onset of Labor, Ceasarean Section-Repeat Procedures: None Intrapartum Procedure(s): : Low Cervical, Transverse - Diagnosis Test Laboratory: Temp Pulse Resp BP Pulse Ox 98.5 F 78 16 127/78 H 100 12/21/17 08:09 12/21/17 08:09 12/21/17 08:09 12/21/17 08:09 12/21/17 08:09 12/18/17 12/18/17 12/19/17 20:33 22:15 06:10 RBC 3.82 4.02 Hgb 10.5 L 10.9 L Hct 29.9 L 31.6 L Urine Opiates Screen UNCONFIRMED POSITIVE 12/21/17 06:48 RBC 3.88 Hgb 10.4 L Hct 30.7 L Urine Opiates Screen - Discharge information/Instructions Discharge Activity: Activity As Tolerated, Balance Activity w/Rest, No Driving, No Lifting Over 10 Pounds, Pelvic Rest, Walk Frequently Discharge Diet: As Tolerated, Regular Disposition: HOME, SELF-CARE Follow up with: [facility] in: 2, Days - blood pressure check
[2017-12-21] MEDS ORDERED: MEDROXYPROGESTERONE ACET INJ 150 MG/1 ML VIAL IM ONE (13:12)
[2017-12-21 15:04] VITALS: BP 128/79
== END 2017-12-21 18:48 | disposition home or self-care (01) | DRG 765 ==
LOC: LC 19:42 → LR 22:31 → 2S 12-19 01:53
PROVIDERS: ADMIT Obstetrics & Gynecology; ATTEND Obstetrics & Gynecology
PROC: 10D00Z1 Extraction of Products of Conception, Low, Open Approach (ICD-10-PCS; principal; 2017-12-18)
PROC: 10907ZC Drainage of Amniotic Fluid, Therapeutic from Products of Conception, Via Natural or Artificial Opening (ICD-10-PCS; 2017-12-18)
DX: O34.211 Maternal care for low transverse scar from previous cesarean delivery (principal); O98.42 Viral hepatitis complicating childbirth; O41.03X0 Oligohydramnios, third trimester, not applicable or unspecified; O99.324 Drug use complicating childbirth; Z37.0 Single live birth; Z3A.37 37 weeks gestation of pregnancy; B18.2 Chronic viral hepatitis C; O99.02 Anemia complicating childbirth; D64.9 Anemia, unspecified; O09.33 Supervision of pregnancy with insufficient antenatal care, third trimester; F19.10 Other psychoactive substance abuse, uncomplicated
CPT/HCPCS: 1961; 36415; 76815; 80307; 80349; 80361; 81001; 81005; 82803; 85025; 85027; 86592; 86701; 86762; 86803; 86804; 86850; 86900; 86901; 87340; 88307; 94799; G0480; J0690; J1050; J1170; J1200; J1650; J2175; J2250; J2270; J2370; J2550; J2590; J2704; J3010; J3490

== ENCOUNTER 2018-03-27 22:57 | Emergency (ER) | payer MEDICAID, OTHER ==
[2018-03-27 23:46] LABS: ABSOLUTE EOSINOPHILS # (AUTO) 0.1 10^3/uL (0.0-0.6); ABSOLUTE LYMPHOCYTES (AUTO) 2.1 10^3/uL (0.5-4.7); ABSOLUTE MONOCYTES (AUTO) 0.5 10^3/uL (0.1-1.4); BASOPHILS % (AUTO) 0.8 % (0-2); EOSINOPHILS % (AUTO) 1.3 % (0-6); HEMATOCRIT 37.2 % (36.0-47.0); HEMOGLOBIN 12.9 g/dL (12.0-15.5); LYMPHOCYTES % (AUTO) 36.6 % (13-45); MEAN CORPUSCULAR HEMOGLOBIN 28.1 pg (27.0-33.4); MEAN CORPUSCULAR HGB CONC 34.8 g/dL (32.0-36.0); MEAN CORPUSCULAR VOLUME 81 fl (80-97); MONOCYTES % (AUTO) 8.3 % (3-13); PLATELET COUNT 349 10^3/uL (150-450); RED CELL DISTRIBUTION WIDTH 15.1 % (11.5-14.0); TOTAL CELLS COUNTED % (AUTO) 100 %; WHITE BLOOD COUNT 5.6 10^3/uL (4.0-10.5)
[2018-03-27 23:55] LABS: APPEARANCE,URINE CLOUDY; BILIRUBIN,URINE NEGATIVE (NEGATIVE); GLUCOSE, URINE NEGATIVE (NEGATIVE); KETONES,URINE TRACE mg/dL (NEGATIVE); LEUKOCYTE ESTERASE,URINE LARGE (NEGATIVE); NITRITE,URINE NEGATIVE (NEGATIVE); PROTEIN,URINE NEGATIVE (NEGATIVE); URINE SPECIFIC GRAVITY 1.017
[2018-03-27 23:56] LABS: COLOR,URINE YELLOW
[2018-03-28 00:01] LABS: ALANINE AMINOTRANSFERASE 57 U/L (9-52); ALBUMIN 4.6 g/dL (3.5-5.0); ALKALINE PHOSPHATASE 69 U/L (38-126); ANION GAP 11 (5-19); ASPARTATE AMINO TRANSFERASE 36 U/L (14-36); BILIRUBIN,DIRECT 0.3 mg/dL (0.0-0.4); BLOOD UREA NITROGEN 16 mg/dL (7-20); CALCIUM 10.2 mg/dL (8.4-10.2); CARBON DIOXIDE 23 mmol/L (22-30); CHLORIDE 108 mmol/L (98-107); GLUCOSE 94 mg/dL (75-110); SODIUM 142.3 mmol/L (137-145); TOTAL PROTEIN 8.3 g/dL (6.3-8.2)
[2018-03-28 00:11] LABS: URINE AMPHETAMINES SCREEN UNCONFIRMED POSITIVE; URINE BARBITURATES SCREEN NEGATIVE; URINE BENZODIAZEPINES SCREEN UNCONFIRMED POSITIVE; URINE COCAINE SCREEN NEGATIVE; URINE MARIJUANA (THC) SCREEN NEGATIVE; URINE METHADONE SCREEN NEGATIVE; URINE PHENCYCLIDINE SCREEN NEGATIVE
[2018-03-28] MEDS ORDERED: POTASSIUM CHLORIDE 20 MEQ/15 ML UDCUP PO ONE (00:32)
[2018-03-28] MEDS ORDERED: CEPHALEXIN 500 MG CAPSULE PO ONE (01:11)
--- NOTE | 2018-03-28 01:14 | RADIOLOGY REPORT (SQ) ---
EXAM DESCRIPTION: CT HEAD WITHOUT IV CONTRAST COMPLETED DATE/TME: 03/27/2018 23:07 CLINICAL HISTORY: 28 years, Female, fall, pain COMPARISON: None. TECHNIQUE: Axial images of the head were performed without the use of intravenous contrast, with sagittal and coronal reformatted images. Images stored on PACS. All CT scanners at this facility use dose modulation, iterative reconstruction, and/or weight based dosing when appropriate to reduce radiation dose to as low as reasonably achievable (ALARA). [facility]: Dose Right [facility]: CareDose [facility]: Dose Right [facility]: Teradose 4D [facility]: [employer] LIMITATIONS: None. FINDINGS: No skull fracture. No intracranial bleed. No evidence of acute infarct. No evidence of mass or hydrocephalus. IMPRESSION: No skull fracture. No intracranial bleed. TECHNICAL DOCUMENTATION: Quality ID # [id number]: Final reports with documentation of one or more dose reduction techniques (e.g., Automated exposure control, adjustment of the mA and/or kV according to patient size, use of iterative reconstruction technique) copyright 2011 [employer]- All Rights Reserved
--- NOTE | 2018-03-28 01:28 | RADIOLOGY REPORT (SQ) ---
EXAM DESCRIPTION: CT CERVICAL SPINE WITHOUT IV CONTRAST COMPLETED DATE/TME: 03/27/2018 23:07 CLINICAL HISTORY: 28 years, Female, fall, pain COMPARISON: None. TECHNIQUE: Axial images of the cervical spine were performed, without the use of intravenous contrast, with sagittal and coronal reformatted images Images stored on PACS. All CT scanners at this facility use dose modulation, iterative reconstruction, and/or weight based dosing when appropriate to reduce radiation dose to as low as reasonably achievable (ALARA). [facility]: Dose Right [facility]: CareDose [facility]: Dose Right [facility]: Teradose 4D [facility]: [employer] LIMITATIONS: None. FINDINGS: No fracture or dislocation. No evidence of spinal stenosis. No evidence of prevertebral swelling. There is slight opacification of the mastoid air cells bilaterally. IMPRESSION: No fracture or dislocation. Slight opacification of the mastoid air cells bilaterally. Please correlate clinically. TECHNICAL DOCUMENTATION: Quality ID # 436: Final reports with documentation of one or more dose reduction techniques (e.g., Automated exposure control, adjustment of the mA and/or kV according to patient size, use of iterative reconstruction technique) copyright 2011 [employer]- All Rights Reserved
--- NOTE | 2018-03-28 02:00 | ER Document Report ---
ED General - General Chief Complaint: Headache >24 hrs old Stated Complaint: UNRESPONSIVE Time Seen by Provider: 03/27/18 23:06 Notes: Patient is a 19-year-old female presents to the emergency department after an unresponsive episode at the longterm. Patient was arrested today and brought to the longterm where she was found unresponsive in her cell by staff at the longterm. Staff reports to EMS that the patient would not respond to a sternal rub but was able to wake up and push the staff away after a ammonia capsule was cracked underneath her nose. EMS states patient has been awake alert conscious times for the entire transportation. Patient currently has a GCS of 15. Patient is complaining of a generalized headache at this time. It is unsure if the patient fell and hit her head or exactly what transpired prior to her being "unresponsive." Patient is currently denying cough, congestion, fever, dysuria, abdominal pain, chest pain, she is only complaining of a generalized headache. Past medical history: Hypothyroid, hepatitis C, hypertension Medications currently none Allergies: Tramadol, Neurontin TRAVEL OUTSIDE OF THE [place] IN LAST 30 DAYS: No - Related Data Allergies/Adverse Reactions: gabapentin Allergy (Verified 12/18/17 22:44) tramadol Allergy (Verified 12/18/17 22:44) Past Medical History - General Information source: Patient, Emergency Med Personnel - Social History Smoking Status: Never Smoker Drug Abuse: Heroin, Methamphetamine, Prescription drugs Family History: Arthritis, CAD, CVA, DM, Hyperlipidemia, Hypertension, Malignancy, Thyroid Disfunction. denies: COPD Patient has suicidal ideation: No Patient has homicidal ideation: No - Past Medical History Cardiac Medical History: Reports: Hx Hypertension - unmedicated Renal/ Medical History: Denies: Hx Peritoneal Dialysis GI Medical History: Reports: Hx Hepatitis - Hep C, Hx Liver Failure Musculoskeletal Medical History: Reports Hx Musculoskeletal Trauma - Right fou rth finger Psychiatric Medical History: Reports: Hx Depression - as a teenager Traumatic Medical History: Reports: Hx Fractures - Right fourth finger today 05/22/2016 Infectious Medical History: Reports: Hx Hepatitis - Hep C Past Surgical History: Reports: Hx Section - Immunizations Immunizations up to date: Yes Hx Diphtheria, Pertussis, Tetanus Vaccination: Yes Review of Systems - Review of Systems Constitutional: No symptoms reported EENT: No symptoms reported Cardiovascular: No symptoms reported Respiratory: No symptoms reported Gastrointestinal: No symptoms reported Genitourinary: No symptoms reported Female Genitourinary: No symptoms reported Musculoskeletal: No symptoms reported Skin: No symptoms reported Hematologic/Lymphatic: No symptoms reported Neurological/Psychological: See HPI Physical Exam - Vital signs Vitals: Temp Pulse Resp BP Pulse Ox 97.4 F 75 28 H 130/96 H 100 03/27/18 22:57 03/27/18 22:57 03/27/18 22:57 03/27/18 22:57 03/27/18 22:57 - Notes Notes: GENERAL: Alert, interacts well. No acute distress. [employer], with handcuffs on and coughed around her waist. HEAD: Normocephalic, atraumatic. EYES: Pupils equal, round, and reactive to light. Extraocular movements intact. ENT: Oral mucosa moist, tongue midline. Currently under the custody of nares patent, TM's intact, no hemotympanum bilaterally NECK: Full range of motion. Supple. Trachea midline. No nuchal rigidity LUNGS: Clear to auscultation bilaterally, no wheezes, rales, or rhonchi. No respiratory distress. HEART: Regular rate and rhythm. No murmur ABDOMEN: Soft, non-tender. Non-distended. Bowel sounds present in all 4 quadrants. EXTREMITIES: Moves all 4 extremities spontaneously. No edema, normal radial and dorsalis pedis pulses bilaterally. No cyanosis. BACK: no cervical, thoracic, lumbar midline tenderness. No saddle anesthesia, normal distal neurovascular exam. NEUROLOGICAL: Alert and oriented x3. Normal speech. cranial nerves II through XII grossly intact PSYCH: Normal affect, normal mood. SKIN: Warm, dry, normal turgor. No rashes or lesions noted. Course - Re-evaluation Re-evalutation: 03/28/18 02:38 Patient initially presents with a questionable loss of consciousness with possib le head or neck trauma. She currently has a GCS of 15. CTs of her head and neck revealed no signs of fractures, intracranial bleeding. Patient's labs to review urinary tract infection without . She has no signs of leukocytosis, no signs of anemia. Patient's potassium was 3.0 in the emergency room her EKG shows sinus rhythm with a rate of [address] segment changes, QTC 499. Patient's urine drug screen does show positive opiates, positive amphetamines, positive benzodiazepines. Discussed this case with Dr. Johny Mcmullen who states there is no need to prescribe the patient potassium for home use. Discussed talking with the patient about increasing her intake of potassium rich foods. I did discuss with patient at bedside use of antibiotics for urinary tract infection and increasing her intake of potassium rich foods. Patient voices understanding. Patient is non-tachycardic, afebrile, non-hypotensive, stable for discharge. Patient has maintained a GCS of 15 the entire time she has been in the emergency room. Patient has no history of seizures. - Vital Signs Vital signs: Temp Pulse Resp BP Pulse Ox 97.4 F 75 19 130/96 H 100 03/27/18 22:57 03/27/18 22:57 03/28/18 00:00 03/27/18 22:57 03/28/18 00:00 - Laboratory Result Diagrams: 03/27/18 23:35 03/27/18 23:35 Laboratory results interpreted by me: 03/27/18 03/27/18 03/27/18 23:26 23:35 23:35 RDW 15.1 H Potassium 3.0 L* Chloride 108 H Total Bilirubin 2.0 H ALT 57 H Total Protein 8.3 H Urine Ketones TRACE H Urine Urobilinogen 4.0 H Ur Leukocyte Esterase LARGE H Discharge - Discharge Clinical Impression: Hypokalemia Urinary tract infection Qualifiers: Urinary tract infection type: acute cystitis Hematuria presence: without hematuria Qualified Code(s): N30.00 - Acute cystitis without hematuria Head injury Qualifiers: Encounter type: initial encounter Qualified Code(s): S09.90XA - Unspecified injury of head, initial encounter Condition: Stable Disposition: HOME, SELF-CARE Instructions: Urinary Tract Infection ([facility]), Cephalexin ([facility]), Hypokalemia ([facility]) Additional Instructions: As we discussed you have been seen and treated in the emergency department for a urinary tract infection and low potassium. You should increase your intake of potassium rich foods. Potassium rich foods include potatoes, bananas, avocados. You should take antibiotics for urinary tract infection as prescribed. Please follow-up with your primary care provider in the next 24-48 hours. Please return to the emergency room for any other concerning symptoms. Prescriptions: Cephalexin Monohydrate [Keflex 500 mg Capsule] 500 mg PO BID 7 Days #14 capsule Referrals: SONAM GARCIA MD [Primary Care Provider] - Follow up as needed
[2018-03-28] MEDS ORDERED: ACETAMINOPHEN 325 MG TABLET PO ONE (02:30)
[2018-03-28 03:27] VITALS: BP 106/69
--- NOTE | 2018-03-28 15:40 | EKG REPORT ---
SEVERITY:- ABNORMAL ECG - SINUS RHYTHM PROLONGED QT INTERVAL : Confirmed by: Zeferino Maguire 28-Mar-2018 15:40:09
== END 2018-03-28 03:43 ==
LOC: ER 22:57
DX: S09.90XA Unspecified injury of head, initial encounter (principal); X58.XXXA Exposure to other specified factors, initial encounter; R51 Headache; E87.6 Hypokalemia; N30.00 Acute cystitis without hematuria; I10 Essential (primary) hypertension; E03.9 Hypothyroidism, unspecified; Z86.19 Personal history of other infectious and parasitic diseases; Z88.4 Allergy status to anesthetic agent
CPT/HCPCS: 36415; 70450; 72125; 80053; 80307; 81001; 81025; 85025; 93005; 93010; 99285